=== PATIENT | female | born 1950 | race Caucasian/White ===

== ENCOUNTER → 2019-10-09 08:36 | Outpatient (BNVA) | payer MEDICARE, MEDICAID, SELFPAY | PROVIDERS: Family Provider Family Medicine; PCP Family Medicine; Visit Provider Family Medicine | DX: E11.65 Type 2 diabetes mellitus with hyperglycemia (principal); Z79.4 Long term (current) use of insulin; I10 Essential (primary) hypertension; F32.9 Major depressive disorder, single episode, unspecified | CPT/HCPCS: 80053; 80061; 82044; 83036; 85025 ==

== ENCOUNTER → 2019-11-14 13:37 | Outpatient (BNVA) | payer MEDICARE, MEDICAID, SELFPAY | PROVIDERS: Family Provider Family Medicine; PCP Family Medicine; Visit Provider Family Medicine | DX: R39.9 Unspecified symptoms and signs involving the genitourinary system (principal); E11.9 Type 2 diabetes mellitus without complications; N39.0 Urinary tract infection, site not specified | CPT/HCPCS: 36416; 80053; 81001; 82962; 87077; 87086; 87186 ==

== ENCOUNTER → 2019-12-10 14:49 | Outpatient (BNVA) | payer MEDICARE, MEDICAID, SELFPAY | PROVIDERS: Family Provider Family Medicine; PCP Family Medicine; Visit Provider Family Medicine | DX: E78.5 Hyperlipidemia, unspecified (principal); E11.65 Type 2 diabetes mellitus with hyperglycemia; G47.00 Insomnia, unspecified | CPT/HCPCS: 80053 ==

== ENCOUNTER → 2020-01-20 08:27 | Outpatient (BNVA) | payer MEDICARE, MEDICAID, SELFPAY | PROVIDERS: Family Provider Family Medicine; PCP Family Medicine; Referring Provider Family Medicine; Visit Provider Anesthesiology Pain Medicine | DX: M54.12 Radiculopathy, cervical region (principal); M47.812 Spondylosis without myelopathy or radiculopathy, cervical region; M43.12 Spondylolisthesis, cervical region; M25.511 Pain in right shoulder; M25.512 Pain in left shoulder; Z79.891 Long term (current) use of opiate analgesic; M25.78 Osteophyte, vertebrae; M47.892 Other spondylosis, cervical region | CPT/HCPCS: 72141; 99204; 99205 ==

== ENCOUNTER 2020-01-20 12:37 | Outpatient (CLI) | payer MEDICARE, MEDICAID, SELFPAY ==
--- NOTE | 2020-01-20 13:00 | MR_ITS ---
WS: [id number] MRI CERVICAL SPINE NONCONTRAST TECHNIQUE: Sagittal T1, T2 and STIR imaging. Axial T2, gradient, and fiesta imaging. CLINICAL INFORMATION: M54.12 Radiculopathy, cervical region COMPARISON: MRI September 30, 2015 FINDINGS: Straightening of the normal cervical lordosis. Cord signal is normal. No high-grade central canal linda nosis. Mild disc bulging C4-C5 and C5-C6. A few secretions within the sphenoid sinus. C2-C3: Normal. C4-C5: Mild disc osteophyte complex with endplate ridging. Mild left and no significant right foramin al narrowing. Mild facet arthropathy. C5-6: Disc osteophyte complex with endplate ridging. Mild left and no significant right foraminal giuliano rowing. Mild facet arthropathy. C6-7 Mild osteophytic ridging. Mild left and no significant right foraminal narrowing. Spinal canal i s patent. C7-T1: Mild left and no significant right foraminal narrowing. Spinal canal is patent Small perineural cysts C5-C7 unchanged. Overall no significant changes since 2015 MR/MR cervical spin wo con* [id number] IMPRESSION: 1. Straightening of the normal cervical lordosis. Cord signal is normal. 2. No high-grade central canal narrowing. 3. Mild disc osteophytic ridging with mild bony foraminal narrowing more promi nent at left C5-C6 and left C6-C7. 4. Mild facet arthropathy C4-C5 and C5-C6.
== END 2020-01-20 12:38 | disposition home or self-care (01) ==
LOC: RADSHAW 12:42
PROVIDERS: PCP Family Medicine; Visit Provider Anesthesiology Pain Medicine
DX: M54.12 Radiculopathy, cervical region (principal); M25.78 Osteophyte, vertebrae; M47.892 Other spondylosis, cervical region
CPT/HCPCS: 72141

== ENCOUNTER 2020-01-21 08:34 | Outpatient (CLI) | payer MEDICARE, MEDICAID, SELFPAY ==
--- NOTE | 2020-01-21 08:43 | XR_ITS ---
WS: [id number] CERVICAL SPINE FLEXION EXTENSION TECHNIQUE: 3 views of the cervical spine: lateral neutral, flexion and extension views. CLINICAL INFORMATION: pain COMPARISON: None. FINDINGS: Straightening of the normal cervical lordosis. Slight anterolisthesis C4 on C5 in the neutral positio n measuring 1.1 mm. This increases on flexion to 1.7 mm. This decreases on extension to neutral. Posterior elements are normal. No other significant findings. XR/XR cervical spine fl/ex [id number] IMPRESSION: Mild flexion extension instability at C4-5 described above.
== END 2020-01-21 08:35 | disposition home or self-care (01) ==
LOC: RADWPI 08:39
PROVIDERS: Family Provider Family Medicine; PCP Family Medicine; Visit Provider Anesthesiology Pain Medicine
DX: M54.2 Cervicalgia (principal); M53.2X2 Spinal instabilities, cervical region
CPT/HCPCS: 72040

== ENCOUNTER → 2020-02-05 11:29 | Outpatient (BNVA) | payer MEDICARE, MEDICAID, SELFPAY | PROVIDERS: Family Provider Family Medicine; PCP Family Medicine; Referring Provider Anesthesiology Pain Medicine; Visit Provider Specialist | DX: G56.03 Carpal tunnel syndrome, bilateral upper limbs (principal); M79.643 Pain in unspecified hand | CPT/HCPCS: 36415; 73110; 80053; 85025; 85651; 86038; 86140; 86431 ==

== ENCOUNTER 2020-02-05 12:27 | Outpatient (CLI) | payer MEDICARE, MEDICAID, SELFPAY ==
[2020-02-05 12:58] LABS: Basophils % 0.3 %; Eosinophils # 0.5 10^3/uL (0.0-0.8); Eosinophils % 5.8 %; Hematocrit 38.1 % (37.0-47.0); Hemoglobin 11.8 g/dL (11.5-15.3); Lymphocytes # 2.6 10^3/uL (0.8-4.8); Lymphocytes % 29.7 %; Mean Corpuscular Hemoglobin 26.5 pg (28.0-34.0); Mean Corpuscular Volume 85.6 fL (81-99); Mean Platelet Volume 9.8 fL (7.4-10.4); Monocytes # 0.8 10^3/uL (0.2-0.9); Monocytes % 8.9 %; Neutrophils # 4.8 10^3/uL (1.8-7.7); Neutrophils % 55.1 %; Nucleated Red Blood Cells % 0 %; Platelet Count 145 10^3/cmm (130-400); Red Blood Count 4.45 10^6/uL (4.1-5.3); Red Cell Distribution Width 14.7 % (12.1-15.1); White Blood Count 8.8 10^3/uL (4.0-10.0)
[2020-02-05 13:12] LABS: Alanine Aminotransferase 32 U/L (0-33); Albumin Level 4.4 g/dL (3.5-5.2); Alkaline Phosphatase 86 IU/L (35-105); Anion Gap 18.2 (5-19); Aspartate Amino Transferase 36 U/L (0-32); Blood Urea Nitrogen 12 mg/dL (8-23); C Reactive Protein 0.7 mg/L (0.0-4.9); Calcium 9.7 mg/dL (8.5-10.5); Carbon Dioxide 28 mmol/L (22-29); Chloride 99 mmol/L (98-107); Globulin 3.5 g/dL (1.3-4.6); Glucose 172 mg/dL (65-115); Osmolality Calculated 292 mOsm/kg (285-295); Potassium 4.2 mmol/L (3.5-5.1); Sodium 141 mmol/L (136-145); Total Bilirubin 0.3 mg/dL (0.15-1.2); Total Protein 7.9 g/dL (6.6-8.7)
[2020-02-05 13:59] LABS: Erythrocyte Sedimentation Rate 25 mm/hr (0-15)
[2020-02-09 14:30] LABS: Anti-Nuclear Antibody Screen NEGATIVE (NEGATIVE)
== END 2020-02-05 12:28 | disposition home or self-care (01) ==
LOC: LAB 12:30
PROVIDERS: PCP Family Medicine; Visit Provider Specialist
DX: M79.643 Pain in unspecified hand (principal)
CPT/HCPCS: 36415; 80053; 85025; 85651; 86038; 86140; 86431

== ENCOUNTER → 2020-02-23 08:43 | Outpatient (BNVA) | payer MEDICARE, MEDICAID, SELFPAY | PROVIDERS: Family Provider Family Medicine; PCP Family Medicine; Visit Provider Anesthesiology Pain Medicine | DX: M43.12 Spondylolisthesis, cervical region (principal); M54.12 Radiculopathy, cervical region; M47.812 Spondylosis without myelopathy or radiculopathy, cervical region; Z79.891 Long term (current) use of opiate analgesic | CPT/HCPCS: 99213; 99214 ==

== ENCOUNTER → 2020-03-02 12:57 | Outpatient (BNVA) | payer MEDICARE, MEDICAID, SELFPAY | PROVIDERS: Family Provider Family Medicine; PCP Family Medicine; Visit Provider Anesthesiology Pain Medicine | DX: M54.12 Radiculopathy, cervical region (principal); Z79.891 Long term (current) use of opiate analgesic | CPT/HCPCS: 62321; J1100 ==

== ENCOUNTER → 2020-03-10 08:34 | Outpatient (BNVA) | payer MEDICARE, MEDICAID, SELFPAY | PROVIDERS: Family Provider Family Medicine; PCP Family Medicine; Visit Provider Family Medicine | DX: I10 Essential (primary) hypertension (principal); E78.5 Hyperlipidemia, unspecified; E11.65 Type 2 diabetes mellitus with hyperglycemia; Z79.4 Long term (current) use of insulin | CPT/HCPCS: 80053; 80061; 83036; 85025 ==

== ENCOUNTER → 2020-03-16 12:42 | Outpatient (BNVA) | payer MEDICARE, MEDICAID, SELFPAY | PROVIDERS: Family Provider Family Medicine; PCP Family Medicine; Visit Provider Anesthesiology Pain Medicine | DX: M54.12 Radiculopathy, cervical region (principal) | CPT/HCPCS: 62321; J1100 ==

== ENCOUNTER → 2020-03-30 10:12 | Outpatient (BNVA) | payer MEDICARE, MEDICAID, SELFPAY | PROVIDERS: Family Provider Family Medicine; PCP Family Medicine; Visit Provider Anesthesiology Pain Medicine | DX: M54.12 Radiculopathy, cervical region (principal); M47.812 Spondylosis without myelopathy or radiculopathy, cervical region; M43.12 Spondylolisthesis, cervical region; M79.18 Myalgia, other site; M25.511 Pain in right shoulder | CPT/HCPCS: 20553; 99213; 99214; J1030; J3490 ==

== ENCOUNTER → 2020-04-13 15:49 | Outpatient (BNVA) | payer MEDICARE, MEDICAID, SELFPAY | PROVIDERS: Family Provider Family Medicine; PCP Family Medicine; Visit Provider Nurse Practitioner Family | DX: N28.9 Disorder of kidney and ureter, unspecified (principal) | CPT/HCPCS: 80053 ==

== ENCOUNTER 2020-05-07 13:43 | Emergency (ER) | payer MEDICARE, MEDICAID, SELFPAY ==
[2020-05-07] VITALS (7 sets, daily range): BP systolic 115–150; BP diastolic 72–109; PULSE 88–110; RESP 18–23; TEMP 37.7; O2SAT 92–94; BMI 35.4
--- NOTE | 2020-05-07 14:31 | XR_ITS ---
WS: [id number] Portable AP upright chest, 05/07/2020 Clinical Data: dyspnea Comparison: PA and lateral chest, 12/25/2017. Findings: No nodules, masses or effusions are seen. The heart is normal. The pulmonary vascularity is not increased. No pneumonia or pneumothorax is seen. The aortic arch and descending aorta shows mild tortuosity. XR/XR chest 1V portable [id number] Impression: Atherosclerosis.
--- NOTE | 2020-05-07 14:33 | ECG_ITS ---
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 Measurements Intervals [place] Rate: 101 P: 42 NE: 141 QRS: 18 QRSD: 89 T: 55 QT: 329 QTc: 427 Interpretive Statements SINUS TACHYCARDIA MODERATE ST DEPRESSION [0.05+ mV ST DEPRESSION] Compared to ECG 12/25/2017 18:31:52 ST (T wave) deviation now present Sinus rhythm no longer present Electronically Signed On 05-07-2020 20:39:04 CDT by Lilia Mejia M.D. [id number]
--- NOTE | 2020-05-07 14:33 | CTR_ITS ---
PROCEDURE INFORMATION: Exam: CT Head Without Contrast Exam date and time: 05/07/2020 2:54 PM Age: 69 years old Clinical indication: Pain; Headache not specified; Additional info: Headache, AMS, covid R/O TECHNIQUE: Imaging protocol: Computed tomography of the head without contrast. Radiation optimization: All CT scans at this facility use at least one of these dose optimization techniques: automated exposure control; mA and/or kV adjustment per patient size (includes targeted exams where dose is matched to clinical indication); or iterative reconstruction. COMPARISON: CT head wo con* [id number] 12/25/2017 1:26 PM RADIATION DOSE METRICS: Total DLP (mGy-cm): 797.52 FINDINGS: Brain: There are mild periventricular and subcortical lucencies consistent with chronic microvascular ischemic changes. The barnes-white differentiation is maintained. No hemorrhage. No edema. Cerebral ventricles: No ventriculomegaly. Bones/joints: Unremarkable. No acute fracture. Paranasal sinuses: Visualized sinuses are unremarkable. No fluid levels. Mastoid air cells: Visualized mastoid air cells are well aerated. Orbits: Bilateral cataract surgery. Soft tissues: Unremarkable. CT/CT head wo con* [id number] IMPRESSION: No acute intracranial abnormality. Chronic microvascular ischemic changes. Radiation Dose CTDIVOL = (mGy): DLP = 797.52 (mGy-cm)
--- NOTE | 2020-05-07 14:38 | W.ED.FEMALGU ---
HPI - Female Genitourinary General: Chief complaint: Upper Respiratory Infection Stated complaint: EAR PAIN BOTH EARS Time Seen by Provider: 05/07/20 14:16 History of Present Illness: HPI Narrative: THis patient is a 69 year old female presenting with 7 days of malaise, fever, cough, shortness of breath, diarrhea and ear pain. Her main complaint is the ear pain and a severe headache. She admits to some mild dysuria when specifically asked. She is not aware of any COVID exposure. She has had ear infections in the past, as well as UTIs. She has diabetes, high cholesterol and is obese with a BMI of 35. She is very sleepy and her family member says that she fell asleep repeatedly in the car on the way to the ED which is not her norm. MD elicited complaint: dysuria Onset (ago): week(s) (1) Associated symptoms: Reports headache(s) and nausea; Deny abdominal pain Review of Systems General: Reports: 10 or more systems reviewed and unremarkable except in HPI and below Const: Reports: fever(s), chills, body aches, change in appetite, fatigue and malaise Eyes: Denies: change in vision ENMT: Reports: throat pain and ear or mastoid pain Card: Denies: chest pain or swelling of feet/ankles Resp: Reports: dyspnea and non-productive cough; Denies: productive cough GI: Reports: nausea and diarrhea; Denies: abdominal pain or vomiting : Reports: dysuria; Denies: flank pain or difficulty voiding Musc: Denies: neck pain or back pain Skin/Breast: Denies: rash Neuro: Reports: headache(s) and other (lethargic); Denies: numbness in extremities or weakness in extremities Yohannes/Lymph: Denies: easy bruising or easy bleeding PFS ED PFSH: Medical History Anxiety CHF (congestive heart failure) COPD (chronic obstructive pulmonary disease) Dyslipidemia Essential hypertension Fibromyalgia GERD (gastroesophageal reflux disease) 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, 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 Pain management contract signed Reactive depression Surgical History H/O cataract extraction H/O knee surgery H/O tubal ligation History of cholecystectomy Family History Other Diabetes Stroke Social History Smoking and tobacco status: never smoked Alcohol intake: never Physical Exam Const: COMMON NORMALS: patient oriented x3, no limitations and alert GENERAL APPEARANCE: cooperative, lethargic and ill appearing ORIENTATION/CONSCIOUSNESS: Yes lethargic HENMT: HEAD & SCALP: normal to inspection FACE & SINUS: normal facial exam Eye: GENERAL EYE: appearance normal, both eyes and all related structures Neck/C-Spine: COMMON NORMALS: supple, no meningeal signs and no JVD Chest: COMMONS NORMALS: normal inspection of the chest Resp: COMMON NORMALS: No use of accessory muscles and clear to auscultation bilaterally EFFORT & INSPECTION: Yes tachypneic and Yes labored AUSCULTATION: clear to auscultation bilaterally and diminished lung sounds Cardio: COMMON NORMALS: no JVD, regular rate, regular rhythm and No murmurs present (Cardio) RATE: regular rate RHYTHM: regular rhythm GI: COMMON NORMALS: Normal to inspection, nondistended, normoactive bowel sounds present, Soft to palpation and non-tender INSPECTION: Yes normal to inspection AUSCULTATION: Yes normoactive bowel sounds PALPATION: Yes Soft to palpation and Yes Tenderness to palpation present (GI) (mild) Back/Pelvis: COMMON NORMALS: thoracic and lumbar spine normal to inspection Extremity: COMMON NORMALS: normal to inspection Neuro: COMMON NORMALS: patient oriented x3, moves all extremities, no focal motor deficits and no sensory deficits noted SENSORIUM/ORIENTATION: Yes alert and Yes lethargic MENINGEAL SIGNS: Yes no meningeal signs Psych: COMMON NORMALS: mental status grossly normal, cooperative and normal affect Skin: COMMON NORMALS: no rashes or lesions noted and turgor normal GENERAL SKIN EXAM: no rashes or lesions noted and turgor normal Course ED course: This patient is experiencing mental status changes. She is positive for COVID-19. She also does have some evidence of urinary tract infection. Her oxygen saturations were not terrible however due to her change in mental status we felt it would be safest to admit her to the hospital for treatment. Vital Signs: Vital signs: Vital Signs Temperature 99.8 F H 05/07/20 13:56 Pulse Rate 88 05/07/20 20:54 Respiratory Rate 23 H 05/07/20 19:54 Blood Pressure 132/82 05/07/20 20:54 Pulse Oximetry 92 05/07/20 20:54 MDM - Female Lab Data: Labs: Lab Results 05/07/20 05/07/20 05/07/20 Range/Units 15:08 15:08 15:08 WBC 7.7 (4.0-10.0) 10^3/ uL RBC 5.22 (4.1-5.3) 10^6/u L Hgb 13.6 (11.5-15.3) g/dL Hct 42.8 (37.0-47.0) % MCV 82.0 (81-99) fL MCH 26.1 L (28.0-34.0) pg MCHC 31.8 (30.0-36.0) g/dL RDW 14.8 (12.1-15.1) % Plt Count 130 (130-400) 10^3/c mm MPV 9.8 (7.4-10.4) fL Neut % (Auto) 62.8 % Lymph % (Auto) 16.4 % [place] % (Auto) 15.4 % Eos % (Auto) 5.0 % Baso % (Auto) 0.1 % Neut # (Auto) 4.86 (1.8-7.7) 10^3/u L Lymph # (Auto) 1.3 (0.8-4.8) 10^3/u L [place] # (Auto) 1.2 H (0.2-0.9) 10^3/u L Eos # (Auto) 0.4 (0.0-0.8) 10^3/u L Baso # (Auto) 0.0 (0.0-0.1) 10^3/u L Nucleated RBC % (a uto) 0 % Nucleated RBCs # 0.0 /100WBC PT 13.40 (12.1-14.9) SECO NDS INR 0.99 (0.8-1.2) Fibrinogen 343 (174-498) mg/dL D-Dimer 0.44 (0-0.59) ug/mIFE U Sodium 135 L (136-145) mmol/L Potassium 3.6 (3.5-5.1) mmol/L Chloride 95 L (98-107) mmol/L Carbon Dioxide 22 (22-29) mmol/L Anion Gap 21.6 H (5-19) BUN 12 (8-23) mg/dL Creatinine 0.6 (0.5-0.9) mg/dL GFR Calculation Not Reportable Glucose 154 H (65-115) mg/dL Calculated Osmolal ity 283 L (285-295) mOsm/k g Lactic Acid (0.5-2.2) mmol/L Calcium 9.4 (8.5-10.5) mg/dL Magnesium 1.7 (1.7-2.3) mg/dL Ferritin 192 H (15-150) ng/mL Total Bilirubin 0.4 (0.15-1.2) mg/dL AST 54 H (0-32) U/L ALT 41 H (0-33) U/L Alkaline Phosphata se 92 (35-105) IU/L Troponin T Baselin e (0-10) ng/L Troponin T 120 Min saxman (0-10) ng/L Delta Troponin T (0-10) ABS# C-Reactive Protein 4.1 (0.0-4.9) mg/L NT-Pro-B Natriuret Pep 7 (0-125) pg/mL Total Protein 7.7 (6.6-8.7) g/dL Albumin 4.6 (3.5-5.2) g/dL Globulin 3.1 (1.3-4.6) g/dL Procalcitonin 0.08 (0-0.5) ng/mL Urine Color (Yellow) Urine Appearance (CLEAR) Urine pH (5-7) Ur Specific Gravit y (1.005-1.030) Urine Protein (Negative) Urine Glucose (UA) (Normal) Urine Ketones (Negative) Urine Blood (Negative) Urine Nitrate (Negative) Urine Bilirubin (Negative) Urine Urobilinogen (Negative) mg/dL Ur Leukocyte Belinda ase (Negative) Urine RBC (0-2) /hpf Urine WBC (0-5) /hpf Ur Squamous Epith Cells (0-5) /hpf Ur Transition Epit h Cell /hpf Amorphous Sediment Urine Bacteria (NONE) /hpf SARS-CoV-2 Ag (Rap id) (Negative) 05/07/20 05/07/20 05/07/20 Range/Units 15:08 15:08 15:10 WBC (4.0-10.0) 10^3/ uL RBC (4.1-5.3) 10^6/u L Hgb (11.5-15.3) g/dL Hct (37.0-47.0) % MCV (81-99) fL MCH (28.0-34.0) pg MCHC (30.0-36.0) g/dL RDW (12.1-15.1) % Plt Count (130-400) 10^3/c mm MPV (7.4-10.4) fL Neut % (Auto) % Lymph % (Auto) % [place] % (Auto) % Eos % (Auto) % Baso % (Auto) % Neut # (Auto) (1.8-7.7) 10^3/u L Lymph # (Auto) (0.8-4.8) 10^3/u L [place] # (Auto) (0.2-0.9) 10^3/u L Eos # (Auto) (0.0-0.8) 10^3/u L Baso # (Auto) (0.0-0.1) 10^3/u L Nucleated RBC % (a uto) % Nucleated RBCs # /100WBC PT (12.1-14.9) SECO NDS INR (0.8-1.2) Fibrinogen (174-498) mg/dL D-Dimer (0-0.59) ug/mIFE U Sodium (136-145) mmol/L Potassium (3.5-5.1) mmol/L Chloride (98-107) mmol/L Carbon Dioxide (22-29) mmol/L Anion Gap (5-19) BUN (8-23) mg/dL Creatinine (0.5-0.9) mg/dL GFR Calculation Glucose (65-115) mg/dL Calculated Osmolal ity (285-295) mOsm/k g Lactic Acid 1.9 (0.5-2.2) mmol/L Calcium (8.5-10.5) mg/dL Magnesium (1.7-2.3) mg/dL Ferritin (15-150) ng/mL Total Bilirubin (0.15-1.2) mg/dL AST (0-32) U/L ALT (0-33) U/L Alkaline Phosphata se (35-105) IU/L Troponin T Baselin e 8 (0-10) ng/L Troponin T 120 Min saxman (0-10) ng/L Delta Troponin T (0-10) ABS# C-Reactive Protein (0.0-4.9) mg/L NT-Pro-B Natriuret Pep (0-125) pg/mL Total Protein (6.6-8.7) g/dL Albumin (3.5-5.2) g/dL Globulin (1.3-4.6) g/dL Procalcitonin (0-0.5) ng/mL Urine Color (Yellow) Urine Appearance (CLEAR) Urine pH (5-7) Ur Specific Gravit y (1.005-1.030) Urine Protein (Negative) Urine Glucose (UA) (Normal) Urine Ketones (Negative) Urine Blood (Negative) Urine Nitrate (Negative) Urine Bilirubin (Negative) Urine Urobilinogen (Negative) mg/dL Ur Leukocyte Belinda ase (Negative) Urine RBC (0-2) /hpf Urine WBC (0-5) /hpf Ur Squamous Epith Cells (0-5) /hpf Ur Transition Epit h Cell /hpf Amorphous Sediment Urine Bacteria (NONE) /hpf SARS-CoV-2 Ag (Rap id) Positive H (Negative) 05/07/20 05/07/20 Range/Units 17:00 17:10 WBC (4.0-10.0) 10^3/ uL RBC (4.1-5.3) 10^6/u L Hgb (11.5-15.3) g/dL Hct (37.0-47.0) % MCV (81-99) fL MCH (28.0-34.0) pg MCHC (30.0-36.0) g/dL RDW (12.1-15.1) % Plt Count (130-400) 10^3/c mm MPV (7.4-10.4) fL Neut % (Auto) % Lymph % (Auto) % [place] % (Auto) % Eos % (Auto) % Baso % (Auto) % Neut # (Auto) (1.8-7.7) 10^3/u L Lymph # (Auto) (0.8-4.8) 10^3/u L [place] # (Auto) (0.2-0.9) 10^3/u L Eos # (Auto) (0.0-0.8) 10^3/u L Baso # (Auto) (0.0-0.1) 10^3/u L Nucleated RBC % (a uto) % Nucleated RBCs # /100WBC PT (12.1-14.9) SECO NDS INR (0.8-1.2) Fibrinogen (174-498) mg/dL D-Dimer (0-0.59) ug/mIFE U Sodium (136-145) mmol/L Potassium (3.5-5.1) mmol/L Chloride (98-107) mmol/L Carbon Dioxide (22-29) mmol/L Anion Gap (5-19) BUN (8-23) mg/dL Creatinine (0.5-0.9) mg/dL GFR Calculation Glucose (65-115) mg/dL Calculated Osmolal ity (285-295) mOsm/k g Lactic Acid (0.5-2.2) mmol/L Calcium (8.5-10.5) mg/dL Magnesium (1.7-2.3) mg/dL Ferritin (15-150) ng/mL Total Bilirubin (0.15-1.2) mg/dL AST (0-32) U/L ALT (0-33) U/L Alkaline Phosphata se (35-105) IU/L Troponin T Baselin e (0-10) ng/L Troponin T 120 Min saxman 9.32 (0-10) ng/L Delta Troponin T 1.32 (0-10) ABS# C-Reactive Protein (0.0-4.9) mg/L NT-Pro-B Natriuret Pep (0-125) pg/mL Total Protein (6.6-8.7) g/dL Albumin (3.5-5.2) g/dL Globulin (1.3-4.6) g/dL Procalcitonin (0-0.5) ng/mL Urine Color Yellow (Yellow) Urine Appearance Hazy A (CLEAR) Urine pH 5 (5-7) Ur Specific Gravit y 1.020 (1.005-1.030) Urine Protein Trace (Negative) Urine Glucose (UA) Norm (Normal) Urine Ketones 1+ H (Negative) Urine Blood Neg (Negative) Urine Nitrate Negative (Negative) Urine Bilirubin Neg (Negative) Urine Urobilinogen 1 H (Negative) mg/dL Ur Leukocyte Belinda ase 2+ H (Negative) Urine RBC 0-4 H (0-2) /hpf Urine WBC 25-40 H (0-5) /hpf Ur Squamous Epith Cells 25-40 H (0-5) /hpf Ur Transition Epit h Cell 0-4 /hpf Amorphous Sediment Not Reportable Urine Bacteria 2+ H (NONE) /hpf SARS-CoV-2 Ag (Rap id) (Negative) Discharge Plan Discharge Patient Disposition: Xfer Short-Term Hosp Clinical Impression: Encephalopathy, Urinary tract infection, COVID-19 Condition: Stable Referrals: Irene Verma DO [Primary Care Provider] - Discharge Date/Time: 05/07/20 22:25 Coding Level of Care Code ED Nurse Advisor for Chg Fwd Exam Comprehensive
[2020-05-07] MEDS: sodium chloride 0.9% 1,000 ML 999 ML IV (15:12)
[2020-05-07 15:19] LABS: Basophils % 0.1 %; Eosinophils # 0.4 10^3/uL (0.0-0.8); Hematocrit 42.8 % (37.0-47.0); Hemoglobin 13.6 g/dL (11.5-15.3); Lymphocytes # 1.3 10^3/uL (0.8-4.8); Lymphocytes % 16.4 %; Mean Corpuscular HGB Conc 31.8 g/dL (30.0-36.0); Mean Corpuscular Hemoglobin 26.1 pg (28.0-34.0); Mean Platelet Volume 9.8 fL (7.4-10.4); Monocytes # 1.2 10^3/uL (0.2-0.9); Monocytes % 15.4 %; Neutrophils # 4.86 10^3/uL (1.8-7.7); Neutrophils % 62.8 %; Nucleated Red Blood Cells % 0 %; Platelet Count 130 10^3/cmm (130-400); Red Blood Count 5.22 10^6/uL (4.1-5.3); Red Cell Distribution Width 14.8 % (12.1-15.1); White Blood Count 7.7 10^3/uL (4.0-10.0)
[2020-05-07 15:33] LABS: SARS Covid-2 Antigen Positive (Negative)
[2020-05-07 15:35] LABS: INR 0.99 (0.8-1.2)
[2020-05-07 15:38] LABS: D Dimer 0.44 ug/mIFEU (0-0.59); Lactic Sepsis W/Reflex 1.9 mmol/L (0.5-2.2)
[2020-05-07 15:39] LABS: Troponin(5th) Baseline 8 ng/L (0-10)
[2020-05-07 15:40] LABS: Fibrinogen 343 mg/dL (174-498)
[2020-05-07 15:49] LABS: NT Pro B Type Natriuretic Pept 7 pg/mL (0-125); Procalcitonin 0.08 ng/mL (0-0.5)
[2020-05-07 16:03] LABS: Alanine Aminotransferase 41 U/L (0-33); Albumin Level 4.6 g/dL (3.5-5.2); Alkaline Phosphatase 92 IU/L (35-105); Anion Gap 21.6 (5-19); Aspartate Amino Transferase 54 U/L (0-32); Blood Urea Nitrogen 12 mg/dL (8-23); C Reactive Protein 4.1 mg/L (0.0-4.9); Calcium 9.4 mg/dL (8.5-10.5); Carbon Dioxide 22 mmol/L (22-29); Chloride 95 mmol/L (98-107); Creatinine Clr Calc Pharmacy 68.9618; Ferritin 192 ng/mL (15-150); Globulin 3.1 g/dL (1.3-4.6); Glucose 154 mg/dL (65-115); Magnesium 1.7 mg/dL (1.7-2.3); Osmolality Calculated 283 mOsm/kg (285-295); Potassium 3.6 mmol/L (3.5-5.1); Sodium 135 mmol/L (136-145); Total Bilirubin 0.4 mg/dL (0.15-1.2); Total Protein 7.7 g/dL (6.6-8.7)
[2020-05-07] MEDS: acetaminophen 500 mg Tablet 1000 MG PO (16:28)
--- NOTE | 2020-05-07 16:33 | ECG_ITS ---
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 Measurements Intervals [place] Rate: 100 P: 65 RI: 134 QRS: 25 QRSD: 90 T: 64 QT: 349 QTc: 450 Interpretive Statements SINUS TACHYCARDIA POSSIBLE LEFT ATRIAL ENLARGEMENT [-0.1mV P WAVE IN V1/V2] MODERATE ST DEPRESSION [0.05+ mV ST DEPRESSION] Compared to ECG 05/07/2020 13:58:48 No significant changes Electronically Signed On 05-07-2020 20:40:35 CDT by Lilia Mejia M.D. [id number]
[2020-05-07 17:33] LABS: Troponin 5 2HR 9.32 ng/L (0-10); Troponin 5 2HR Delta 1.32 ABS# (0-10)
[2020-05-07 17:56] LABS: Urine Appearance Hazy (CLEAR); Urine Color Yellow (Yellow); pH Urine 5 (5-7)
[2020-05-07 17:57] LABS: Add Urine Microscopic? YES; Bilirubin Urine Neg (Negative); Blood Urine Neg (Negative); Glucose Urine UA Norm (Normal); Ketones Urine 1+ (Negative); Leukocyte Esterase Urine 2+ (Negative); Nitrate Urine Negative (Negative); Protein Urine Trace (Negative); Urobilinogen Urine 1 mg/dL (Negative)
[2020-05-07 17:58] LABS: RBC Urine 0-4 /hpf (0-2); Squamous Epithelial Cell Urine 25-40 /hpf (0-5); WBC Urine 25-40 /hpf (0-5)
[2020-05-07 17:59] LABS: Add Urine Culture? No; Bacteria Urine 2+ /hpf; Transitional Epi Cells Urine 0-4 /hpf
[2020-05-07] MEDS: cefTRIAXone 1,000 MG in sodium chloride 0.9% (plus) 50 ML 100 MG IV (19:14)
--- NOTE | 2020-05-07 20:32 | PC.NURSE ---
Report given to Ingrid Sainz RN at [facility] at 2029. Patient consent form signed at 2021.
--- NOTE | 2020-05-07 20:33 | ECG_ITS ---
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 Measurements Intervals [place] Rate: 85 P: 66 [place]: 147 QRS: 34 QRSD: 91 T: 66 QT: 379 QTc: 452 Interpretive Statements SINUS RHYTHM MINIMAL ST DEPRESSION [0.025+ mV ST DEPRESSION] Compared to ECG 05/07/2020 16:05:07 Sinus tachycardia no longer present ST (T wave) deviation still present Electronically Signed On 05-10-2020 17:37:34 CDT by Deejay Chambers M.D. [id number]
== END 2020-05-07 22:25 | disposition short-term general hospital (02) ==
PROVIDERS: Emergency Medicine; Emergency Provider Emergency Medicine; PCP Family Medicine
DX: G93.40 Encephalopathy, unspecified (principal); N39.0 Urinary tract infection, site not specified; U07.1 COVID-19; I11.0 Hypertensive heart disease with heart failure; I50.9 Heart failure, unspecified; J44.9 Chronic obstructive pulmonary disease, unspecified; E78.5 Hyperlipidemia, unspecified; E11.9 Type 2 diabetes mellitus without complications
CPT/HCPCS: 12345; 70450; 71045; 80053; 81001; 82728; 83605; 83735; 83880; 84145; 84484; 85025; 85378; 85384; 85610; 86140; 87426; 93005; 96365; 99283; 99284; J0696; J7030

== ENCOUNTER 2020-05-16 12:33 | Emergency (ER) | payer MEDICARE, MEDICAID, SELFPAY ==
[2020-05-16] VITALS (10 sets, daily range): BP systolic 95–176; BP diastolic 61–88; PULSE 63–92; RESP 14–32; TEMP 37; O2SAT 75–98; BMI 38.9
--- NOTE | 2020-05-16 12:51 | XRR_ITS ---
PROCEDURE INFORMATION: Exam: XR Chest, 1 View Exam date and time: 05/16/2020 12:54 PM Age: 69 years old Clinical indication: Shortness of breath; Additional info: Covid, hypoxia TECHNIQUE: Imaging protocol: XR of the chest Views: 1 view. COMPARISON: CR XR chest 1V portable [id number] 05/07/2020 2:38 PM FINDINGS: Lungs: Low lung volumes are seen. Parenchymal densities are seen in the right lower lobe suspicious for pneumonia. Interstitial congestion is present in the left lower lobe. Pleural space: Unremarkable. No pleural effusion. No pneumothorax. Heart/Mediastinum: Unremarkable. No cardiomegaly. Bones/joints: Unremarkable. Other findings: These findings are new since prior examination XR/XR chest 1V portable [id number] IMPRESSION: 1. Parenchymal density right lower lobe possible pneumonia 2. Left lower lobe interstitial congestion. 3. Low lung volumes
--- NOTE | 2020-05-16 12:57 | ED_ITS ---
HPI - Altered Mental Status General: Chief Complaint: Shortness of Breath/Dyspnea Stated Complaint: covid +/ sob/ low o2 stats Time Seen by Provider: 05/16/20 12:45 History of Present Illness: HPI narrative: This patient is a 69-year-old female who presents today with altered mental status and hypoxia. She had a positive COVID test on May 07. I saw her in the ER on that day with vague symptoms that were related to lethargy, ear pain, upper respiratory type symptoms. She also had a UTI at that time. Her daughter at that time told me that she has a history of UTIs and often gets decreased mental status with them. We admitted her on that date but due to bed availability she was transferred to [facility]. She was released after 1 day according to her grandson who brought her in [facility]. He said that since that time she is just been very lethargic and sleepy. Today she had a significant decrease in her mental status and they noted that her pulse ox was in the 60s. They brought her in by private vehicle. On arrival she was lethargic and was not even sure what her name was. Her initial sat for us was 75%. The positive cover test was on May 07 and at that time she reported that she had not been feeling well for nearly a week but had not had any really specific COVID symptoms so it is hard to say when the infection actually started. If it had started a week before she would be on about day 14 today. The patient's only complaint to us on initial assessment was right leg pain. I do not note any swelling there. I spoke with the patient's daughter who is an RN. She said that she was sent home on Decadron from the hospital but was not on any antibiotics because they did not think she had a UTI based on the urine test there. I checked her cultures here and the urine sent from here did grow E. coli. Alina start her on some antibiotics now. complaint: altered mental status, decreased responsiveness and weakness Timing confirmed by: family member Severity: severe Consistency of symptoms: Getting Worse Review of Systems General: Reports: ROS unobtainable due to mental status PFS ED PFSH: Medical History Anxiety CHF (congestive heart failure) COPD (chronic obstructive pulmonary disease) Dyslipidemia Essential hypertension Fibromyalgia GERD (gastroesophageal reflux disease) 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, uncontrolled half-way (current) use of opiate analgesic Pain management contract signed Reactive depression Surgical History H/O cataract extraction H/O knee surgery H/O tubal ligation History of cholecystectomy Family History Other Diabetes Stroke Social History Smoking and tobacco status: never smoked Alcohol intake: never Physical Exam HENMT: HEAD & SCALP: normal to inspection FACE & SINUS: normal facial exam Eye: GENERAL EYE: appearance normal, both eyes and all related structures Neck/C-Spine: COMMON NORMALS: supple, no meningeal signs and no JVD Chest: COMMONS NORMALS: normal inspection of the chest Resp: COMMON NORMALS: normal respiratory effort EFFORT & INSPECTION: Yes decreased respiratory effort AUSCULTATION: rhonchi left lower Cardio: COMMON NORMALS: no JVD, regular rate, regular rhythm and No murmurs present (Cardio) RATE: regular rate RHYTHM: regular rhythm GI: COMMON NORMALS: Normal to inspection, nondistended, normoactive bowel sounds present, Soft to palpation and non-tender INSPECTION: Yes normal to inspection AUSCULTATION: Yes normoactive bowel sounds PALPATION: Yes Soft to palpation Back/Pelvis: COMMON NORMALS: thoracic and lumbar spine normal to inspection Extremity: COMMON NORMALS: normal to inspection Neuro: ERMIAS COMA SCALE: document [facility] findings [place] coma scale eye opening: To sound Ermias coma scale verbal response: Confused Ermias coma scale motor response: Obey commands Ermias coma scale total score: 13 COMMON NORMALS: moves all extremities, no focal motor deficits and no sensory deficits noted MENINGEAL SIGNS: Yes no meningeal signs GAIT: Yes Other gait observations present (Was able to stand to transfer from the wheelchair to the bed but with assistance from 2 people) SENSORY EXAM: Yes extremities Psych: COMMON NORMALS: mental status grossly normal, cooperative and normal affect Skin: COMMON NORMALS: no rashes or lesions noted and turgor normal GENERAL SKIN EXAM: no rashes or lesions noted and turgor normal Procedures Intubation Time out performed: Yes sedative: Etomidate paralytic: Succinylcholine Laryngoscope: fiber optic video scope ET Tube Size: 8 ET Tube Uncuffed: No Tube Secured Depth (cm): 23 Tube Secured Location: lips Tube Placement Confirmation: visualized tube passing through cords, equal breath sounds bilaterally, no breath sounds over epigastrium and confirmation by capnometry Patient Tolerated Procedure: well Intubation Complications: none Course ED course: Ms. Aden had progressively increasing oxygen requirements and eventually required intubation. She will be transferred to [facility] for further treatment of her Covid pneumonia. I had multiple discussions with her daughter about her condition and plan of care. Vital Signs: Vital signs: Vital Signs Temperature 98.6 F 05/16/20 12:58 Pulse Rate 63 05/16/20 16:29 Respiratory Rate 17 05/16/20 16:58 Blood Pressure 102/62 05/16/20 16:29 Pulse Oximetry 97 05/16/20 16:29 MDM - Altered Mental Status Lab Data: Labs: Lab Results 05/16/20 05/16/20 05/16/20 Range/Units 12:30 12:45 12:45 WBC 12.7 H (4.0-10.0) 10^3/ uL RBC 4.85 (4.1-5.3) 10^6/u L Hgb 12.6 (11.5-15.3) g/dL Hct 41.0 (37.0-47.0) % MCV 84.5 (81-99) fL MCH 26.0 L (28.0-34.0) pg MCHC 30.7 (30.0-36.0) g/dL RDW 14.8 (12.1-15.1) % Plt Count 173 (130-400) 10^3/c mm MPV 10.3 (7.4-10.4) fL Neut % (Auto) 74.6 % Lymph % (Auto) 15.0 % [place] % (Auto) 7.4 % Eos % (Auto) 2.0 % Baso % (Auto) 0.2 % Neut # (Auto) 9.45 H (1.8-7.7) 10^3/u L Lymph # (Auto) 1.9 (0.8-4.8) 10^3/u L [place] # (Auto) 0.9 (0.2-0.9) 10^3/u L Eos # (Auto) 0.3 (0.0-0.8) 10^3/u L Baso # (Auto) 0.0 (0.0-0.1) 10^3/u L Nucleated RBC % (a uto) 0 % Nucleated RBCs # 0.0 /100WBC PT 14.20 (12.1-14.9) SECO NDS INR 1.06 (0.8-1.2) Fibrinogen 604 H (174-498) mg/dL D-Dimer 1.20 H (0-0.59) ug/mIFE U Specimen Type Arterial Sample Site Radial, left ABG pH 7.45 (7.35-7.45) ABG pCO2 36.3 (35-45) mmHg ABG pO2 71.4 L (80.0-100.0) mmH g ABG HCO3 24.9 (22-26) mmol/L ABG Base Excess 1.1 (-2.0-2.0) mmol/ L Tigre Test Pos Hematocrit 39.1 (37-47) % O2 Delivery Device Nrb O2 Liters/Min 15.0 % FiO2 % Tidal Volume PEEP cmH20 Ore Fielder ID Cak Sodium (136-145) mmol/L Potassium (3.5-5.1) mmol/L Chloride (98-107) mmol/L Carbon Dioxide (22-29) mmol/L Anion Gap (5-19) BUN (8-23) mg/dL Creatinine (0.5-0.9) mg/dL GFR Calculation Glucose (65-115) mg/dL POC Glucose (70-110) mg/dL Calculated Osmolal ity (285-295) mOsm/k g Lactic Acid (0.5-2.2) mmol/L Lactic Acid (Sepsi s) (0.5-2.2) mmol/L Calcium (8.5-10.5) mg/dL Magnesium (1.7-2.3) mg/dL Ferritin (15-150) ng/mL Total Bilirubin (0.15-1.2) mg/dL AST (0-32) U/L ALT (0-33) U/L Alkaline Phosphata se (35-105) IU/L Lactate Dehydrogen ase (135-214) U/L C-Reactive Protein (0.0-4.9) mg/L NT-Pro-B Natriuret Pep (0-125) pg/mL Total Protein (6.6-8.7) g/dL Albumin (3.5-5.2) g/dL Globulin (1.3-4.6) g/dL Procalcitonin (0-0.5) ng/mL Urine Color (Yellow) Urine Appearance (CLEAR) Urine pH (5-7) Ur Specific Gravit y (1.005-1.030) Urine Protein (Negative) Urine Glucose (UA) (Normal) Urine Ketones (Negative) Urine Blood (Negative) Urine Nitrate (Negative) Urine Bilirubin (Negative) Urine Urobilinogen (Negative) mg/dL Ur Leukocyte Belinda ase (Negative) Urine RBC (0-2) /hpf Urine WBC (0-5) /hpf Ur Squamous Epith Cells (0-5) /hpf Amorphous Sediment Urine Bacteria (NONE) /hpf Urine Mucus /hpf 05/16/20 05/16/20 05/16/20 Range/Units 12:45 12:45 13:29 WBC (4.0-10.0) 10^3/ uL RBC (4.1-5.3) 10^6/u L Hgb (11.5-15.3) g/dL Hct (37.0-47.0) % MCV (81-99) fL MCH (28.0-34.0) pg MCHC (30.0-36.0) g/dL RDW (12.1-15.1) % Plt Count (130-400) 10^3/c mm MPV (7.4-10.4) fL Neut % (Auto) % Lymph % (Auto) % [place] % (Auto) % Eos % (Auto) % Baso % (Auto) % Neut # (Auto) (1.8-7.7) 10^3/u L Lymph # (Auto) (0.8-4.8) 10^3/u L [place] # (Auto) (0.2-0.9) 10^3/u L Eos # (Auto) (0.0-0.8) 10^3/u L Baso # (Auto) (0.0-0.1) 10^3/u L Nucleated RBC % (a uto) % Nucleated RBCs # /100WBC PT (12.1-14.9) SECO NDS INR (0.8-1.2) Fibrinogen (174-498) mg/dL D-Dimer (0-0.59) ug/mIFE U Specimen Type Sample Site ABG pH (7.35-7.45) ABG pCO2 (35-45) mmHg ABG pO2 (80.0-100.0) mmH g ABG HCO3 (22-26) mmol/L ABG Base Excess (-2.0-2.0) mmol/ L Tigre Test Hematocrit (37-47) % O2 Delivery Device O2 Liters/Min % FiO2 % Tidal Volume PEEP cmH20 Ore Fielder ID Sodium 140 (136-145) mmol/L Potassium 3.6 (3.5-5.1) mmol/L Chloride 101 (98-107) mmol/L Carbon Dioxide 24 (22-29) mmol/L Anion Gap 18.6 (5-19) BUN 19 (8-23) mg/dL Creatinine 0.6 (0.5-0.9) mg/dL GFR Calculation Not Reportable Glucose 163 H (65-115) mg/dL POC Glucose 101 (70-110) mg/dL Calculated Osmolal ity 296 H (285-295) mOsm/k g Lactic Acid 3.1 H (0.5-2.2) mmol/L Lactic Acid (Sepsi s) (0.5-2.2) mmol/L Calcium 8.9 (8.5-10.5) mg/dL Magnesium 1.7 (1.7-2.3) mg/dL Ferritin 435 H (15-150) ng/mL Total Bilirubin 0.5 (0.15-1.2) mg/dL AST 50 H (0-32) U/L ALT 36 H (0-33) U/L Alkaline Phosphata se 71 (35-105) IU/L Lactate Dehydrogen ase 398 H (135-214) U/L C-Reactive Protein 83.6 H (0.0-4.9) mg/L NT-Pro-B Natriuret Pep 75 (0-125) pg/mL Total Protein 6.8 (6.6-8.7) g/dL Albumin 3.3 L (3.5-5.2) g/dL Globulin 3.5 (1.3-4.6) g/dL Procalcitonin 0.15 (0-0.5) ng/mL Urine Color (Yellow) Urine Appearance (CLEAR) Urine pH (5-7) Ur Specific Gravit y (1.005-1.030) Urine Protein (Negative) Urine Glucose (UA) (Normal) Urine Ketones (Negative) Urine Blood (Negative) Urine Nitrate (Negative) Urine Bilirubin (Negative) Urine Urobilinogen (Negative) mg/dL Ur Leukocyte Belinda ase (Negative) Urine RBC (0-2) /hpf Urine WBC (0-5) /hpf Ur Squamous Epith Cells (0-5) /hpf Amorphous Sediment Urine Bacteria (NONE) /hpf Urine Mucus /hpf 05/16/20 05/16/20 05/16/20 Range/Units 15:25 15:49 16:15 WBC (4.0-10.0) 10^3/ uL RBC (4.1-5.3) 10^6/u L Hgb (11.5-15.3) g/dL Hct (37.0-47.0) % MCV (81-99) fL MCH (28.0-34.0) pg MCHC (30.0-36.0) g/dL RDW (12.1-15.1) % Plt Count (130-400) 10^3/c mm MPV (7.4-10.4) fL Neut % (Auto) % Lymph % (Auto) % [place] % (Auto) % Eos % (Auto) % Baso % (Auto) % Neut # (Auto) (1.8-7.7) 10^3/u L Lymph # (Auto) (0.8-4.8) 10^3/u L [place] # (Auto) (0.2-0.9) 10^3/u L Eos # (Auto) (0.0-0.8) 10^3/u L Baso # (Auto) (0.0-0.1) 10^3/u L Nucleated RBC % (a uto) % Nucleated RBCs # /100WBC PT (12.1-14.9) SECO NDS INR (0.8-1.2) Fibrinogen (174-498) mg/dL D-Dimer (0-0.59) ug/mIFE U Specimen Type Arterial Sample Site Radial, right ABG pH 7.39 (7.35-7.45) ABG pCO2 45.3 H (35-45) mmHg ABG pO2 233.0 H (80.0-100.0) mmH g ABG HCO3 27.4 H (22-26) mmol/L ABG Base Excess 2.0 (-2.0-2.0) mmol/ L Tigre Test Pos Hematocrit 35.5 L (37-47) % O2 Delivery Device Vent O2 Liters/Min % FiO2 90.0 % Tidal Volume 0.45 PEEP 10.0 cmH20 Ore Fielder ID [place] Sodium (136-145) mmol/L Potassium (3.5-5.1) mmol/L Chloride (98-107) mmol/L Carbon Dioxide (22-29) mmol/L Anion Gap (5-19) BUN (8-23) mg/dL Creatinine (0.5-0.9) mg/dL GFR Calculation Glucose (65-115) mg/dL POC Glucose (70-110) mg/dL Calculated Osmolal ity (285-295) mOsm/k g Lactic Acid (0.5-2.2) mmol/L Lactic Acid (Sepsi s) 2.4 H (0.5-2.2) mmol/L Calcium (8.5-10.5) mg/dL Magnesium (1.7-2.3) mg/dL Ferritin (15-150) ng/mL Total Bilirubin (0.15-1.2) mg/dL AST (0-32) U/L ALT (0-33) U/L Alkaline Phosphata se (35-105) IU/L Lactate Dehydrogen ase (135-214) U/L C-Reactive Protein (0.0-4.9) mg/L NT-Pro-B Natriuret Pep (0-125) pg/mL Total Protein (6.6-8.7) g/dL Albumin (3.5-5.2) g/dL Globulin (1.3-4.6) g/dL Procalcitonin (0-0.5) ng/mL Urine Color Dark yellow (Yellow) Urine Appearance Sl hazy (CLEAR) Urine pH 5 (5-7) Ur Specific Gravit y 1.020 (1.005-1.030) Urine Protein Trace (Negative) Urine Glucose (UA) Norm (Normal) Urine Ketones 1+ H (Negative) Urine Blood Neg (Negative) Urine Nitrate Negative (Negative) Urine Bilirubin Neg (Negative) Urine Urobilinogen 1 H (Negative) mg/dL Ur Leukocyte Belinda ase Negative (Negative) Urine RBC None (0-2) /hpf Urine WBC 0-4 H (0-5) /hpf Ur Squamous Epith Cells 0-4 H (0-5) /hpf Amorphous Sediment Not Reportable Urine Bacteria Trace (NONE) /hpf Urine Mucus Trace /hpf Discharge Plan Discharge Patient Disposition: Xfer Other Referrals: Irene Verma DO [Primary Care Provider] - Discharge Date/Time: 05/16/20 17:14 Coding Level of Care Code ED [employer] for Chg Fwd Exam Comprehensive
[2020-05-16 13:01] LABS: Basophils % 0.2 %; Eosinophils # 0.3 10^3/uL (0.0-0.8); Hemoglobin 12.6 g/dL (11.5-15.3); Lymphocytes # 1.9 10^3/uL (0.8-4.8); Mean Corpuscular HGB Conc 30.7 g/dL (30.0-36.0); Mean Corpuscular Volume 84.5 fL (81-99); Mean Platelet Volume 10.3 fL (7.4-10.4); Monocytes # 0.9 10^3/uL (0.2-0.9); Monocytes % 7.4 %; Neutrophils # 9.45 10^3/uL (1.8-7.7); Neutrophils % 74.6 %; Nucleated Red Blood Cells % 0 %; Platelet Count 173 10^3/cmm (130-400); Red Blood Count 4.85 10^6/uL (4.1-5.3); Red Cell Distribution Width 14.8 % (12.1-15.1); White Blood Count 12.7 10^3/uL (4.0-10.0)
[2020-05-16 13:07] LABS: INR 1.06 (0.8-1.2)
[2020-05-16 13:08] LABS: Fibrinogen 604 mg/dL (174-498)
[2020-05-16 13:13] LABS: Lactic Sepsis W/Reflex 3.1 mmol/L (0.5-2.2)
[2020-05-16 13:23] LABS: NT Pro B Type Natriuretic Pept 75 pg/mL (0-125); Procalcitonin 0.15 ng/mL (0-0.5)
[2020-05-16 13:29] LABS: Reflex Lactate Order REFLEX LACTIC ORDERD
[2020-05-16 13:33] LABS: Glucose Point of Care 101 mg/dL (70-110)
[2020-05-16 13:35] LABS: Alanine Aminotransferase 36 U/L (0-33); Albumin Level 3.3 g/dL (3.5-5.2); Alkaline Phosphatase 71 IU/L (35-105); Anion Gap 18.6 (5-19); Aspartate Amino Transferase 50 U/L (0-32); Blood Urea Nitrogen 19 mg/dL (8-23); C Reactive Protein 83.6 mg/L (0.0-4.9); Calcium 8.9 mg/dL (8.5-10.5); Carbon Dioxide 24 mmol/L (22-29); Chloride 101 mmol/L (98-107); Creatinine Clr Calc Pharmacy 72.6568; Ferritin 435 ng/mL (15-150); Globulin 3.5 g/dL (1.3-4.6); Glucose 163 mg/dL (65-115); Magnesium 1.7 mg/dL (1.7-2.3); Osmolality Calculated 296 mOsm/kg (285-295); Potassium 3.6 mmol/L (3.5-5.1); Sodium 140 mmol/L (136-145); Total Bilirubin 0.5 mg/dL (0.15-1.2); Total Protein 6.8 g/dL (6.6-8.7)
[2020-05-16 13:38] LABS: ABG PCO2 36.3 mmHg (35-45); ABG PH Result 7.45 (7.35-7.45); Arterial Blood Gas Hematocrit 39.1 % (37-47); Base Excess ABG 1.1 mmol/L (-2.0-2.0); Blood Gas Allen Test Pos; Blood Gas Operator Identificat CAK; Blood Gas Sample Site Radial, left; Blood Gas Sample Type Arterial; HCO3 ABG 24.9 mmol/L (22-26); Oxygen Device NRB; PO2 ABG 71.4 mmHg (80.0-100.0)
[2020-05-16] MEDS: cefTRIAXone 1,000 MG in sodium chloride 0.9% (plus) 50 ML 100 MG IV (13:39)
[2020-05-16 13:48] LABS: Lactate Dehydrogenase 398 U/L (135-214)
[2020-05-16] MEDS: enoxaparin 100 mg/mL Syringe SUBCUT (14:41)
[2020-05-16] MEDS: haloperidol inj 5 mg/mL INJ 1 mL 2 MG IVP (14:41)
[2020-05-16] MEDS: dexamethasone 4 mg/mL INJ 6 MG IVP (14:42)
[2020-05-16] MEDS: succinylcholine 20 mg/mL SDV 10mL 125 MG IVP (15:03)
[2020-05-16] MEDS: propofol 1,000 MG/100 ML INJ 6 MG IV (15:06)
--- NOTE | 2020-05-16 15:13 | PC.NURSE ---
25mcg bolus of propofol administered by RN for sedation from IV pump
--- NOTE | 2020-05-16 15:20 | PC.NURSE ---
pt given 25mcg bolus of propofol for sedation from IV pump per verbal order of ED physician
[2020-05-16] MEDS: fentaNYL 50 mcg/mL INJ 2mL 100 MCG IVP (15:24)
--- NOTE | 2020-05-16 15:36 | PC.NURSE ---
*1 nurse assisted with intubation of Pt. Pt received 8.0 ET tube-22 at teeth. Equal breath sounds auscultated bilaterally. 14french OG tube inserted with auscultation and gastric contents to confirm placement.
[2020-05-16 16:02] LABS: ABG PCO2 45.3 mmHg (35-45); ABG PH Result 7.39 (7.35-7.45); Arterial Blood Gas Hematocrit 35.5 % (37-47); Blood Gas Allen Test Pos; Blood Gas Operator Identificat MONRO; Blood Gas Sample Site Radial, right; Blood Gas Sample Type Arterial; HCO3 ABG 27.4 mmol/L (22-26); Oxygen Device VENT
[2020-05-16 16:03] LABS: Blood Gas Tidal Volume 0.45
[2020-05-16 16:13] LABS: Protein Urine Trace (Negative); Urine Appearance SL Hazy (CLEAR); Urine Color Dark Yellow (Yellow); pH Urine 5 (5-7)
[2020-05-16 16:14] LABS: Add Urine Culture? No; Add Urine Microscopic? YES; Bacteria Urine TRACE /hpf; Bilirubin Urine Neg (Negative); Blood Urine Neg (Negative); Glucose Urine UA Norm (Normal); Ketones Urine 1+ (Negative); Leukocyte Esterase Urine Negative (Negative); Mucus Urine TRACE /hpf; Nitrate Urine Negative (Negative); Squamous Epithelial Cell Urine 0-4 /hpf (0-5); Urobilinogen Urine 1 mg/dL (Negative); WBC Urine 0-4 /hpf (0-5)
--- NOTE | 2020-05-16 16:28 | ECG_ITS ---
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 Measurements Intervals [place] Rate: 78 P: 38 WI: 147 QRS: 19 QRSD: 91 T: 74 QT: 360 QTc: 411 Interpretive Statements SINUS RHYTHM NONSPECIFIC ST & T-WAVE ABNORMALITY WARNING: DATA QUALITY MAY AFFECT INTERPRETATION INTERPRETATION BASED ON A DEFAULT AGE OF 40 YEARS Compared to ECG 05/07/2020 19:45:04 T-wave abnormality now present ST (T wave) deviation no longer present Electronically Signed On 05-16-2020 18:11:49 CDT by Danielle Yoder M.D. [id number]
[2020-05-16 16:39] LABS: Lactic Acid level (Lactate) 2.4 mmol/L (0.5-2.2)
--- NOTE | 2020-05-16 17:05 | PC.NURSE ---
PT GIVEN 25MCG OF FENTANYL IV BOLUS FROM IV PUMP.
== END 2020-05-16 17:14 | disposition other institution (70) ==
PROVIDERS: Emergency Provider Emergency Medicine; PCP Family Medicine
DX: R06.02 Shortness of breath (principal); R09.02 Hypoxemia; I11.0 Hypertensive heart disease with heart failure; I50.9 Heart failure, unspecified; J44.9 Chronic obstructive pulmonary disease, unspecified; E78.5 Hyperlipidemia, unspecified; E11.9 Type 2 diabetes mellitus without complications
CPT/HCPCS: 12345; 31500; 36415; 36416; 36600; 51702; 71045; 80053; 81001; 82728; 82803; 82962; 83605; 83615; 83735; 83880; 84145; 85025; 85378; 85384; 85610; 86140; 87040; 93005; 94002; 94799; 96365; 96366; 96367; 96368; 96372; 96375; 99284; 99291; J0330; J0696; J1100; J1630; J1650; J2704; J3010; J3490

== ENCOUNTER → 2020-06-09 08:39 | Outpatient (BNVA) | payer MEDICARE, MEDICAID, SELFPAY | PROVIDERS: PCP Family Medicine; Visit Provider Family Medicine | DX: E11.65 Type 2 diabetes mellitus with hyperglycemia (principal); Z79.4 Long term (current) use of insulin; Z23 Encounter for immunization | CPT/HCPCS: 80053; 82043; 83036 ==

== ENCOUNTER → 2020-09-06 08:27 | Outpatient (BNVA) | payer MEDICARE, MEDICAID, SELFPAY | PROVIDERS: PCP Family Medicine; Visit Provider Family Medicine | DX: E11.9 Type 2 diabetes mellitus without complications (principal); E78.5 Hyperlipidemia, unspecified; I10 Essential (primary) hypertension; Z79.4 Long term (current) use of insulin | CPT/HCPCS: 80053; 80061; 83036 ==

== ENCOUNTER → 2020-12-06 08:29 | Outpatient (BNVA) | payer MEDICARE, MEDICAID, SELFPAY | PROVIDERS: PCP Family Medicine; Visit Provider Family Medicine | DX: E11.9 Type 2 diabetes mellitus without complications (principal); Z79.4 Long term (current) use of insulin | CPT/HCPCS: 80053; 83036 ==

== ENCOUNTER 2020-12-29 15:29 | Emergency (ER) | payer MEDICARE, MEDICAID, SELFPAY ==
[2020-12-29 16:04] VITALS: BP 125/79; PULSE 82; RESP 18; TEMP 36.2; O2SAT 96; BMI 36.0
--- NOTE | 2020-12-29 16:14 | XRR_ITS ---
PROCEDURE INFORMATION: Exam: XR Right Hip Exam date and time: 12/29/2020 4:32 PM Age: 69 years old Clinical indication: Injury or trauma; Fall; Blunt trauma (contusions or hematomas); Right; Injury date: 3 days ago; Injury details: Hit hip on orthodox pew; Additional info: Fall, one view pelvis too please TECHNIQUE: Imaging protocol: XR Right hip. Views: 1 view hip with pelvis when performed. COMPARISON: [place]dom[place] [id number] 12/26/2017 12:56 PM FINDINGS: Bones/joints: Unremarkable. No acute fracture. Soft tissues: Unremarkable. XR/XR hip RT 2-3V wo/w pel* [id number] IMPRESSION: No acute findings.
[2020-12-29 16:16] VITALS: BP 125/79; PULSE 80; RESP 16; O2SAT 94
--- NOTE | 2020-12-29 16:25 | ED_ITS ---
Documented by User: JACOB Bland 12/30/20 07:07 HPI - Extremity Problem General: Chief complaint: Extremity Injury, Lower Stated complaint: R hip pain Time Seen by Provider: 12/29/20 16:19 Source: patient Mode of arrival: ambulatory Limitations: no limitations History of Present Illness: HPI Narrative: Patient is a nice 69-year-old female who presents to ED today with a complaint of right hip pain. Patient tells me 3 days ago while at [employer] she accidentally fell backwards (mechanical- no complaints of chest pain, SOB, dizziness) and struck her right hip on a [employer] pe[employer]. She states she did notice discomfort immediately but laughed it off . She states she has progressively noticed worsening pain over the past 3 days. Pain is worse with ambulation. She has had ambulate with a cane secondary to discomfort. No other injury sustained during the event. MD Complaint: joint pain Onset (ago): day(s) Pain Consistency: constant Location: right and lower extremity Radiation: none Relieving factors: immobilization Exacerbating factors: range of motion, weight bearing and walking Associated symptoms: Reports no associated symptoms; Deny chest pain or fever(s) Review of Systems Const: Denies: fever(s) Eyes: Denies: change in vision Card: Denies: chest pain Resp: Denies: dyspnea GI: Denies: abdominal pain, nausea or vomiting : Denies: flank pain or hematuria Musc: Reports: joint pain (R hip); Denies: neck pain, back pain, extremity pain, extremity swelling, joint swelling, joint redness, joint warmth or joint stiffness Neuro: Reports: difficulty walking (secondary to pain); Denies: numbness in extremities, weakness in extremities or sensory changes PFS ED PFSH: Medical History Anxiety CHF (congestive heart failure) COPD (chronic obstructive pulmonary disease) Dyslipidemia Essential hypertension Fibromyalgia GERD (gastroesophageal reflux disease) History of 2019 novel coronavirus disease (COVID-19) detention (current) use of opiate analgesic Pain management contract signed Reactive depression Type 2 diabetes mellitus, with long-term current use of insulin Surgical History H/O cataract extraction H/O knee surgery H/O tubal ligation History of cholecystectomy Family History Other Diabetes Stroke Social History Smoking and tobacco status: never smoked Alcohol intake: never Physical Exam Const: COMMON NORMALS: no acute distress, patient oriented x3, no limitations and alert GENERAL APPEARANCE: cooperative NUTRITIONAL APPEARANCE: overweight ORIENTATION/CONSCIOUSNESS: Yes awake, Yes oriented to person, Yes oriented to place and Yes oriented to time OTHER: ambulating poorly with a cane HENMT: COMMON NORMALS: atraumatic HEAD & SCALP: atraumatic Resp: COMMON NORMALS: normal respiratory effort and clear to auscultation bilaterally AUSCULTATION: clear to auscultation bilaterally Cardio: COMMON NORMALS: regular rate and regular rhythm RATE: regular rate RHYTHM: regular rhythm Extremity: RIGHT LOWER EXTREMITY: Yes hip joint (TTP posterior/lateral R hip) Right hip: Yes neurovascular exam (normal ) Neuro: COMMON NORMALS: patient oriented x3 SENSORIUM/ORIENTATION: Yes alert, Yes oriented to person, Yes oriented to place and Yes oriented to time Course Vital Signs: Vital signs: Vital Signs Temperature 97.1 F L 12/29/20 16:04 Pulse Rate 80 12/29/20 16:16 Respiratory Rate 16 12/29/20 16:16 Blood Pressure 125/79 12/29/20 16:16 Pulse Oximetry 94 12/29/20 16:16 MDM - Extremity (Nontraumatic) MDM Narrative: Medical decision making narrative: Care transferred to CIELO Girard. I don't see anything obvious on her plain films but given her amount of pain and trouble with ambulation I am concerned for occult fracture. Will obtain CT imaging. Imaging Data^: XR R hip/pelvis: My impression: NAD Discharge Plan Discharge Patient Disposition: Home Clinical Impression: Contusion of right hip Qualifiers: Encounter type: initial encounter Qualified Code(s): S70.01XA - Contusion of right hip, initial encounter Condition: Stable Prescriptions: New Voltaren 1 % gel 4 g topical QID Qty: 100 RF: 0 No Action nitroglycerin 0.4 mg tablet, sublingual 0.4 mg SUBLINGUAL Q5M PRN (Reason: Chest Pain) RF: 0 albuterol sulfate 2.5 mg /3 mL (0.083 %) solution for nebulization 2.5 mg inhalation Q4H PRN (Reason: shortness of breath or wheezing) Qty: 180 RF: 0 albuterol sulfate [Ventolin HFA] 90 mcg/actuation HFA aerosol inhaler 2 puff inhalation Q6H PRN (Reason: shortness of breath or wheezing) Qty: 18 RF: 2 (DME) OneTouch Ultra Blue Test Strip Strip See Rx Instructions .ROUTE .MEDSUPPLY Qty: 200 RF: 4 (DME) lancets [OneTouch Delica Lancets] 33 gauge misc See Rx Instructions .ROUTE .MEDSUPPLY Qty: 200 RF: 4 (DME) pen needle, diabetic [BD Ultra-Fine Mini Pen Needle] 31 gauge x 3/16 needle See Rx Instructions .ROUTE .MEDSUPPLY Qty: 200 RF: 2 duloxetine 60 mg capsule,delayed release(DR/EC) 60 mg PO DAILY Qty: 90 RF: 1 duloxetine 30 mg capsule,delayed release(DR/EC) 30 mg PO DAILY Qty: 90 RF: 1 omeprazole 40 mg capsule,delayed release(DR/EC) 40 mg PO DAILY Qty: 90 RF: 2 trazodone 50 mg tablet 50 mg PO BEDTIME Qty: 30 RF: 3 Lantus Solostar U-100 Insulin 100 unit/mL (3 mL) insulin pen 60 unit SUBCUT BID Qty: 45 RF: 5 furosemide 40 mg tablet See Rx Instructions PO DAILY Qty: 45 RF: 2 atorvastatin 40 mg tablet 20 mg PO .AT BEDTIME Qty: 90 RF: 0 losartan 25 mg tablet 12.5 mg PO DAILY Qty: 90 RF: 0 metoprolol succinate 50 mg tablet extended release 24 hr 50 mg PO BEDTIME Qty: 90 RF: 1 gabapentin 600 mg tablet 600 mg PO BID 30 Days Qty: 60 RF: 2 insulin lispro [Humalog KwikPen Insulin] 100 unit/mL insulin pen 10 unit SUBCUT TID Qty: 30 RF: 1 metformin 1,000 mg tablet 1,000 mg PO BID Qty: 60 RF: 5 Tylenol Extra Strength 500 mg Tablet 500 mg PO PRN RF: 0 iron 325 mg (65 mg iron) Tablet 325 mg PO DAILY RF: 0 Ozempic 1 mg/dose (2 mg/1.5 mL) pen injector 1 mg SUBCUT Q7D RF: 0 Discharge Orders: Discharge ED (Routine); Ordered 12/29/20 Ordered By: Oswaldo Shea Referrals: Irene Verma DO [Primary Care Provider] - Discharge Diet: Usual diet Discharge Activity: Increase activity as tolerated Patient Instructions: Contusion in Adults (ED) Activity Restrictions/Additional Instructions: Follow-up with medical provider as directed. Take medications as prescribed. Return to the ER or your medical provider if condition worsens. Please read and understand discharge instructions. If any questions ask please. Please be aware that your blood sugar might go up for next few days due to steroid shot you received. I am recommending apply ice to the area as needed. Try to increase your range of motion. If no significant provement noted in few days follow back up with your family medical provider. Coding Level of Care Code ED Staff Attorney for Chg Fwd Exam Detailed Documented by User: CIELO Girard 12/29/20 20:30 HPI - Extremity Problem General: Chief complaint: Extremity Injury, Lower Stated complaint: R hip pain Time Seen by Provider: 12/29/20 16:19 [facility] PFSH: Medical History Anxiety CHF (congestive heart failure) COPD (chronic obstructive pulmonary disease) Dyslipidemia Essential hypertension Fibromyalgia GERD (gastroesophageal reflux disease) History of 2019 novel coronavirus disease (COVID-19) detention (current) use of opiate analgesic Pain management contract signed Reactive depression Type 2 diabetes mellitus, with long-term current use of insulin Surgical History H/O cataract extraction H/O knee surgery H/O tubal ligation History of cholecystectomy Family History Other Diabetes Stroke Social History Smoking and tobacco status: never smoked Alcohol intake: never Course Vital Signs: Vital signs: Vital Signs Temperature 97.1 F L 12/29/20 16:04 Pulse Rate 80 12/29/20 16:16 Respiratory Rate 16 12/29/20 16:16 Blood Pressure 125/79 12/29/20 16:16 Pulse Oximetry 94 12/29/20 16:16 MDM - Extremity (Nontraumatic) MDM Narrative: Medical decision making narrative: Patient signed over by JACOB Bland. Radiology studies were negative. Patient desired injection for pain. Does not want any narcotics. Patient instructed follow-up primary care provider if no significant provement. Discharge Plan Discharge Patient Disposition: Home Clinical Impression: Contusion of right hip Qualifiers: Encounter type: initial encounter Qualified Code(s): S70.01XA - Contusion of right hip, initial encounter Condition: Stable Prescriptions: New Voltaren 1 % gel 4 g topical QID Qty: 100 RF: 0 No Action nitroglycerin 0.4 mg tablet, sublingual 0.4 mg SUBLINGUAL Q5M PRN (Reason: Chest Pain) RF: 0 albuterol sulfate 2.5 mg /3 mL (0.083 %) solution for nebulization 2.5 mg inhalation Q4H PRN (Reason: shortness of breath or wheezing) Qty: 180 RF: 0 albuterol sulfate [Ventolin HFA] 90 mcg/actuation HFA aerosol inhaler 2 puff inhalation Q6H PRN (Reason: shortness of breath or wheezing) Qty: 18 RF: 2 (DME) OneTouch Ultra Blue Test Strip Strip See Rx Instructions .ROUTE .MEDSUPPLY Qty: 200 RF: 4 (DME) lancets [OneTouch Delica Lancets] 33 gauge misc See Rx Instructions .ROUTE .MEDSUPPLY Qty: 200 RF: 4 (DME) pen needle, diabetic [BD Ultra-Fine Mini Pen Needle] 31 gauge x 3/16 needle See Rx Instructions .ROUTE .MEDSUPPLY Qty: 200 RF: 2 duloxetine 60 mg capsule,delayed release(DR/EC) 60 mg PO DAILY Qty: 90 RF: 1 duloxetine 30 mg capsule,delayed release(DR/EC) 30 mg PO DAILY Qty: 90 RF: 1 omeprazole 40 mg capsule,delayed release(DR/EC) 40 mg PO DAILY Qty: 90 RF: 2 trazodone 50 mg tablet 50 mg PO BEDTIME Qty: 30 RF: 3 Lantus Solostar U-100 Insulin 100 unit/mL (3 mL) insulin pen 60 unit SUBCUT BID Qty: 45 RF: 5 furosemide 40 mg tablet See Rx Instructions PO DAILY Qty: 45 RF: 2 atorvastatin 40 mg tablet 20 mg PO .AT BEDTIME Qty: 90 RF: 0 losartan 25 mg tablet 12.5 mg PO DAILY Qty: 90 RF: 0 metoprolol succinate 50 mg tablet extended release 24 hr 50 mg PO BEDTIME Qty: 90 RF: 1 gabapentin 600 mg tablet 600 mg PO BID 30 Days Qty: 60 RF: 2 insulin lispro [Humalog KwikPen Insulin] 100 unit/mL insulin pen 10 unit SUBCUT TID Qty: 30 RF: 1 metformin 1,000 mg tablet 1,000 mg PO BID Qty: 60 RF: 5 Tylenol Extra Strength 500 mg Tablet 500 mg PO PRN RF: 0 iron 325 mg (65 mg iron) Tablet 325 mg PO DAILY RF: 0 Ozempic 1 mg/dose (2 mg/1.5 mL) pen injector 1 mg SUBCUT Q7D RF: 0 Discharge Orders: Discharge ED (Routine); Ordered 12/29/20 Ordered By: Oswaldo Shea Referrals: Irene Verma DO [Primary Care Provider] - Discharge Diet: Usual diet Discharge Activity: Increase activity as tolerated Patient Instructions: Contusion in Adults (ED) Activity Restrictions/Additional Instructions: Follow-up with medical provider as directed. Take medications as prescribed. Return to the ER or your medical provider if condition worsens. Please read and understand discharge instructions. If any questions ask please. Please be aware that your blood sugar might go up for next few days due to steroid shot you received. I am recommending apply ice to the area as needed. Try to increase your range of motion. If no significant provement noted in few days follow back up with your family medical provider. Coding Level of Care Code ED Staff Attorney for Shamar Fwtim Exam Detailed
--- NOTE | 2020-12-29 16:59 | CTR_ITS ---
PROCEDURE INFORMATION: Exam: CT Right Lower Extremity Without Contrast, Hip Exam date and time: 12/29/2020 5:02 PM Age: 69 years old Clinical indication: Injury or trauma; Fall; Blunt trauma; Hip; Right; Additional info: R hip pain/trauma; Trouble with ambulation. Fall backwards x 3 days. Worsening when ambulate TECHNIQUE: Imaging protocol: CT of the Right lower extremity without contrast was performed. Exam focused on the hip. Radiation optimization: All CT scans at this facility use at least one of these dose optimization techniques: automated exposure control; mA and/or kV adjustment per patient size (includes targeted exams where dose is matched to clinical indication); or iterative reconstruction. COMPARISON: CR XR hip RT 2-3V wo/w pel* [id number] 12/29/2020 4:46 PM RADIATION DOSE METRICS: Total DLP (mGy-cm): 2076.2 FINDINGS: Bones/joints: Unremarkabl. No acute fracture or dislocation. Soft tissues: Unremarkable CT/CT hip RT wo con* [id number] IMPRESSION: Negative for acute right hip bony abnormality. Radiation Dose CTDIVOL = (mGy): DLP = 2076.2 (mGy-cm)
[2020-12-29] MEDS: methylPREDNISolone (DEPO) 40 mg/mL INJ 1 mL IM (18:16)
== END 2020-12-29 18:18 | disposition home or self-care (01) ==
PROVIDERS: Emergency Provider Nurse Practitioner Family; PCP Family Medicine
DX: S70.01XA Contusion of right hip, initial encounter (principal); Z79.4 Long term (current) use of insulin; W18.30XA Fall on same level, unspecified, initial encounter; E11.9 Type 2 diabetes mellitus without complications
CPT/HCPCS: 73502; 73700; 96372; 99283; J1030

== ENCOUNTER → 2021-03-04 08:36 | Outpatient (BNVA) | payer MEDICARE, MEDICAID, SELFPAY | PROVIDERS: PCP Family Medicine; Visit Provider Family Medicine | DX: E11.9 Type 2 diabetes mellitus without complications (principal); Z79.4 Long term (current) use of insulin; I10 Essential (primary) hypertension; R10.12 Left upper quadrant pain | CPT/HCPCS: 80053; 83036; 83690; 85025 ==

== ENCOUNTER → 2021-05-27 09:18 | Outpatient (BNVA) | payer MEDICARE, MEDICAID, SELFPAY | PROVIDERS: PCP Family Medicine; Visit Provider Family Medicine | DX: E11.9 Type 2 diabetes mellitus without complications (principal); Z79.4 Long term (current) use of insulin; I10 Essential (primary) hypertension; Z68.36 Body mass index [BMI] 36.0-36.9, adult | CPT/HCPCS: 80053; 83036 ==

== ENCOUNTER → 2021-08-26 09:20 | Outpatient (BNVA) | payer MEDICARE, MEDICAID, SELFPAY | PROVIDERS: PCP Family Medicine; Visit Provider Family Medicine | DX: E11.9 Type 2 diabetes mellitus without complications (principal); E78.5 Hyperlipidemia, unspecified; F32.9 Major depressive disorder, single episode, unspecified; I10 Essential (primary) hypertension; Z79.4 Long term (current) use of insulin | CPT/HCPCS: 80053; 80061; 82043; 83036 ==

== ENCOUNTER → 2021-09-05 00:01 | Outpatient (BNVA) | payer MEDICARE, MEDICAID, SELFPAY | PROVIDERS: PCP Family Medicine; Visit Provider Family Medicine | DX: R50.9 Fever, unspecified (principal); Z20.822 Contact with and (suspected) exposure to COVID-19 | CPT/HCPCS: 87635 ==

== ENCOUNTER → 2021-09-27 08:30 | Outpatient (BNVA) | payer MEDICARE, MEDICAID, SELFPAY | PROVIDERS: PCP Family Medicine; Visit Provider Family Medicine | DX: E78.5 Hyperlipidemia, unspecified (principal) | CPT/HCPCS: 80053 ==

== ENCOUNTER 2021-10-31 | Outpatient (CLI) | payer MEDICARE, MEDICAID, SELFPAY | END 2021-10-31 00:01 | disposition home or self-care (01) | LOC: RAD 12-22 10:25 | PROVIDERS: PCP Family Medicine; Visit Provider Family Medicine | DX: Z12.31 Encounter for screening mammogram for malignant neoplasm of breast (principal); R10.2 Pelvic and perineal pain | CPT/HCPCS: 88175 ==

== ENCOUNTER → 2021-11-28 11:26 | Outpatient (BNVA) | payer MEDICARE, MEDICAID, SELFPAY | PROVIDERS: PCP Family Medicine; Visit Provider Family Medicine | DX: E11.9 Type 2 diabetes mellitus without complications (principal); Z79.4 Long term (current) use of insulin; I10 Essential (primary) hypertension; E78.5 Hyperlipidemia, unspecified; G25.0 Essential tremor | CPT/HCPCS: 80053; 83036 ==

== ENCOUNTER 2021-11-30 15:24 | Outpatient (CLI) | payer MEDICARE, MEDICAID, SELFPAY ==
--- NOTE | 2021-11-30 16:10 | US_ITS ---
WS: [id number] TRANSABDOMINAL PELVIC AND TRANSVAGINAL PELVIC ULTRASOUND HISTORY: pelvic pain in female COMPARISON: None available. Uterus: 7.8 cm x 4.4 cm x 3.2 cm. Normal size for age uterus. The uterus is anteverted. Endometrium: 0.4 cm. Normal size endometrium. There is a small amount of fluid along the endometrial canal. Neither ovary is identified. No adnexal masses. There is a large amount of GI tract content obscuring the adnexa. US/US pelvic with transvaginal IMPRESSION: 1. Neither ovary identified. 2. Normal endometrium.
== END 2021-11-30 15:25 | disposition home or self-care (01) ==
LOC: RAD 15:37
PROVIDERS: PCP Family Medicine; Visit Provider Family Medicine
DX: R10.2 Pelvic and perineal pain (principal)
CPT/HCPCS: 76830; 76856

== ENCOUNTER → 2021-12-02 11:19 | Outpatient (BNVA) | payer MEDICARE, MEDICAID, SELFPAY | PROVIDERS: PCP Family Medicine; Referring Provider Family Medicine; Visit Provider Obstetrics & Gynecology | DX: R10.2 Pelvic and perineal pain (principal) | CPT/HCPCS: 81000 ==

== ENCOUNTER 2021-12-27 15:06 | Outpatient (CLI) | payer MEDICARE, MEDICAID, SELFPAY ==
--- NOTE | 2021-12-27 15:20 | MM_ITS ---
WS: [id number] BILATERAL 3D TOMOSYNTHESIS DIGITAL SCREENING MAMMOGRAPHY WITH CAD CLINICAL INFORMATION: SCREENING HISTORY: Screening mammogram. No current complaints. COMPARISON: None. TECHNIQUE: Bilateral CC and MLO views. FINDINGS: Scattered fibroglandular densities bilaterally. A few incidental calcifications. Linear calcification s posterior depth LEFT breast superior quadrant appears to be vascular. Incidental clustered punctate calcifications. RIGHT breast is unremarkable MM/[place] [id number] IMPRESSION: BI-RADS: 2-Benign FOLLOW UP: 1 Year Follow-up Recommend return to annual screening mammography.
== END 2021-12-27 15:07 | disposition home or self-care (01) ==
PROVIDERS: PCP Family Medicine; Visit Provider Family Medicine
DX: Z12.31 Encounter for screening mammogram for malignant neoplasm of breast (principal)
CPT/HCPCS: 77063; 77067

== ENCOUNTER → 2022-03-30 09:41 | Outpatient (BNVA) | payer MEDICARE, MEDICAID, SELFPAY | PROVIDERS: PCP Family Medicine; Visit Provider Family Medicine | DX: E11.9 Type 2 diabetes mellitus without complications (principal); Z79.4 Long term (current) use of insulin; M54.12 Radiculopathy, cervical region | CPT/HCPCS: 80053; 83036 ==

== ENCOUNTER → 2022-06-22 09:55 | Outpatient (BNVA) | payer MEDICARE, MEDICAID, SELFPAY | PROVIDERS: PCP Family Medicine; Visit Provider Family Medicine | DX: E11.65 Type 2 diabetes mellitus with hyperglycemia (principal); I10 Essential (primary) hypertension; E11.9 Type 2 diabetes mellitus without complications; Z23 Encounter for immunization; J01.90 Acute sinusitis, unspecified; J43.1 Panlobular emphysema; B96.89 Other specified bacterial agents as the cause of diseases classified elsewhere; Z79.4 Long term (current) use of insulin | CPT/HCPCS: 80053; 82043; 83036; 85025 ==

== ENCOUNTER → 2022-07-10 09:43 | Outpatient (BNVA) | payer MEDICARE, MEDICAID, SELFPAY | PROVIDERS: PCP Family Medicine; Visit Provider Anesthesiology Pain Medicine | DX: G89.29 Other chronic pain (principal); M51.16 Intervertebral disc disorders with radiculopathy, lumbar region; M47.816 Spondylosis without myelopathy or radiculopathy, lumbar region; M79.604 Pain in right leg | CPT/HCPCS: 72110; 99214 ==

== ENCOUNTER → 2022-08-14 11:08 | Outpatient (BNVA) | payer MEDICARE, MEDICAID, SELFPAY | PROVIDERS: PCP Family Medicine; Referring Provider Family Medicine; Visit Provider Specialist | DX: G25.0 Essential tremor (principal); G45.9 Transient cerebral ischemic attack, unspecified; F41.9 Anxiety disorder, unspecified | CPT/HCPCS: 99205 ==

== ENCOUNTER → 2022-08-21 14:46 | Outpatient (BNVA) | payer MEDICARE, MEDICAID, SELFPAY | PROVIDERS: PCP Family Medicine; Referring Provider Specialist; Visit Provider Specialist | DX: G45.9 Transient cerebral ischemic attack, unspecified (principal); R56.9 Unspecified convulsions | CPT/HCPCS: 95812 ==

== ENCOUNTER → 2022-09-14 09:54 | Outpatient (BNVA) | payer MEDICARE, MEDICAID, SELFPAY | PROVIDERS: PCP Family Medicine; Visit Provider Family Medicine | DX: E11.9 Type 2 diabetes mellitus without complications (principal); Z79.4 Long term (current) use of insulin; E78.5 Hyperlipidemia, unspecified; F51.02 Adjustment insomnia | CPT/HCPCS: 80053; 80061; 83036 ==

== ENCOUNTER 2022-09-26 09:26 | Outpatient (CLI) | payer MEDICARE, MEDICAID, SELFPAY ==
--- NOTE | 2022-09-26 09:30 | MR_ITS ---
WS: [id number] MRI BRAIN WITHOUT CONTRAST HISTORY: G25.0 - Essential tremor COMPARISON: CT head 05/07/2020. TECHNIQUE: Diffusion imaging, multiplanar T1, T2 and FLAIR imaging obtained. No evidence for acute infarct or hemorrhage. Goodwin-white matter differentiation is normal. Mild symmetric atrophy. Mild small vessel ischemic changes in the supratentorial white matter. Bilate ral increased T2 signal and FLAIR signal in the enrique. The increased signal is symmetric. No prior lar ge territory infarcts. No hemorrhage. Ventricles and extra-axial spaces are normal. No inferior displacement of cerebellar tonsils. The sella turcica and pituitary gland are unremarkabl e. Dural venous sinuses and [place] demonstrate no abnormality on this unenhanced studies. Paranasal sinuses: Mucoperiosteal thickening in the sphenoid sinuses, greatest on the LEFT. No air-fl uid levels. Mastoid air cells: Normal. Calvarium and scalp: Intact. MR/MR head wo con* [id number] IMPRESSION: 1. No acute infarct or diffusion abnormality. 2. Mild atrophy and supratentorial small vessel ischemic disease. 3. Moderate increased signal in the enrique is bilateral and symmetric. Most like ly due to small vessel ischemic disease. 4. Moderate sphenoid sinus disease.
== END 2022-09-26 09:27 | disposition home or self-care (01) ==
PROVIDERS: PCP Family Medicine; Visit Provider Specialist
DX: G25.0 Essential tremor (principal); G45.9 Transient cerebral ischemic attack, unspecified
CPT/HCPCS: 70551

== ENCOUNTER → 2022-12-18 11:21 | Outpatient (BNVA) | payer MEDICARE, MEDICAID, SELFPAY | PROVIDERS: PCP Family Medicine; Visit Provider Family Medicine | DX: E11.9 Type 2 diabetes mellitus without complications (principal); Z79.4 Long term (current) use of insulin; R42 Dizziness and giddiness; I10 Essential (primary) hypertension | CPT/HCPCS: 80053; 83036 ==

== ENCOUNTER 2023-01-23 11:19 | Outpatient (CLI) | payer MEDICARE, MEDICAID, SELFPAY ==
--- NOTE | 2023-01-23 12:15 | USCV_ITS ---
Glenda Aden Age: 72 Gender: F : 1950 Exam Date: 01/23/2023 11:34 Ordering Phys: Irene Verma DO Technologist: Michael Moreno Exam Location[place] [facility] [place] Indication: dizziness Risk Factors: Previous Vascular Surgery: Right Brachial BP: / Left Brachial BP: / Right Left Velocity (cm/s) Spectral Plaque Velocity (cm/s) Spectral Plaque Syst/Diast Broadening Syst/Diast Broadening 86.00/ 22.10 Prox CCA 78.30 / 20.90 69.90/ 17.90 Mid CCA 72.80 / 20.90 57.50/ 15.50 Distal CCA 82.70 / 25.40 51.90/ 10.50 Prox ICA 49.30 / 16.60 68.40/ 23.00 Mid ICA 50.60 / 16.10 86.80/ 30.90 Distal ICA 51.40 / 18.30 109.20 ECA 95.90 0.98 ICA/CCA 0.69 Antegrade Vertebral Antegrade 41.60/ 8.50 cm/s 59.50/ 19.80 cm/s Tri Subclavian Tri 98.10 95.90 CONCLUSIONS Right ICA stenosis <50%. Mild atheromatous plaque right carotid bulb/ICA. Left ICA stenosis <50%. Mild atheromatous plaque left carotid bulb/ICA. Normal antegrade Doppler flow noted in the right vertebral artery. Normal antegrade Doppler flow noted in the left vertebral artery. Dionisio Ko MD (Electronically Signed) Final Date: 23 January 2023 13:09 S
== END 2023-01-23 11:20 | disposition home or self-care (01) ==
PROVIDERS: PCP Family Medicine; Visit Provider Family Medicine
DX: I65.23 Occlusion and stenosis of bilateral carotid arteries (principal); R42 Dizziness and giddiness
CPT/HCPCS: 80053; 83036; 93880

== ENCOUNTER → 2023-03-19 09:26 | Outpatient (BNVA) | payer MEDICARE, MEDICAID, SELFPAY | PROVIDERS: PCP Family Medicine; Visit Provider Family Medicine | DX: E11.9 Type 2 diabetes mellitus without complications (principal); Z79.4 Long term (current) use of insulin | CPT/HCPCS: 80053; 83036 ==

== ENCOUNTER → 2023-06-11 10:09 | Outpatient (BNVA) | payer MEDICARE, MEDICAID, SELFPAY | PROVIDERS: PCP Family Medicine; Visit Provider Family Medicine | DX: E11.9 Type 2 diabetes mellitus without complications (principal); Z79.4 Long term (current) use of insulin; Z23 Encounter for immunization | CPT/HCPCS: 80053; 82043; 83036; 85025 ==

== ENCOUNTER 2023-06-21 13:43 | Outpatient (CLI) | payer MEDICARE, MEDICAID, SELFPAY ==
--- NOTE | 2023-06-21 14:17 | MM_ITS ---
WS: [id number] BILATERAL 3D TOMOSYNTHESIS DIGITAL SCREENING MAMMOGRAPHY WITH CAD CLINICAL INFORMATION: SCREEN HISTORY: Screening mammogram. No current complaints. COMPARISON: 12/27/2021 TECHNIQUE: Bilateral CC and MLO views. FINDINGS: Scattered fibroglandular densities bilaterally. Incidental vascular calcifications bilaterally. Heter ogeneous suspicious clustered calcifications outer LEFT breast posterior depth appear progressed comp ared to previous with new pleomorphic calcifications. Recommend further evaluation with stereotactic guided biopsy. RIGHT breast is unremarkable and unchanged. IMPRESSION: MM/[place] [id number] BI-RADS: 4-Suspicious Finding-Biopsy Should Be Considered FOLLOW UP: Stereotactic Biopsy Recommended Recommend stereotactic guided biopsy of the suspicious progressing clustered LE FT breast calcifications described above.
== END 2023-06-21 13:44 | disposition home or self-care (01) ==
LOC: RAD 13:43
PROVIDERS: PCP Family Medicine; Visit Provider Family Medicine
DX: Z12.31 Encounter for screening mammogram for malignant neoplasm of breast (principal); R92.1 Mammographic calcification found on diagnostic imaging of breast
CPT/HCPCS: 77063; 77067

== ENCOUNTER 2023-07-24 12:32 | Outpatient (CLI) | payer MEDICARE, MEDICAID, SELFPAY ==
--- NOTE | 2023-07-24 | MM_ITS ---
WS: [id number] STEREOTACTIC LEFT BREAST BIOPSY WITH VACUUM ASSISTANCE HISTORY: LEFT breast calcifications. Biopsy recommended. COMPARISON: 06/21/2023, 12/27/2021 Procedure, risks and complications were explained to the patient. Medications and prior radiographs a re reviewed. LEFT breast calcifications are located. Calcifications in the upper outer quadrant. Calcifications ar e targeted in the craniocaudal projection. The skin is cleansed with ChloraPrep and anesthetized with 1% buffered lidocaine. Deeper soft tissues anesthetized with a combination of lidocaine and epinephr ine. Small dermatome is made. Needle advanced into the LEFT breast. Stereotactic imaging reveals appr opriate positioning adjacent calcifications. Multiple vacuum-assisted core biopsies are obtained. No complications were encountered. Post biopsy specimen radiograph reveals numerous calcifications. Biopsy clip is placed in the cavity. Post imaging reveals good placement of the clip. No migration. S ignificant decrease in number of calcifications post biopsy. Pressures held for approximately 15 minutes. No bleeding. Dressing applied. Patient discharged with n o complications. There is no bleeding. With any questions or complications patient is to return. IMPRESSION: 1. Uncomplicated LEFT breast stereotactic biopsy. 2. Specimen contains numerous calcifications. MM/MM surgical specimen LT Pathology: Benign proliferative breast disease with dystrophic calcification. N o atypia or lobular hyperplasia or malignancy. RECOMMENDATION: Diagnostic LEFT mammogram 6 months.
--- NOTE | 2023-07-24 | MM_ITS ---
WS: [id number] STEREOTACTIC LEFT BREAST BIOPSY WITH VACUUM ASSISTANCE HISTORY: LEFT breast calcifications. Biopsy recommended. COMPARISON: 06/21/2023, 12/27/2021 Procedure, risks and complications were explained to the patient. Medications and prior radiographs a re reviewed. LEFT breast calcifications are located. Calcifications in the upper outer quadrant. Calcifications ar e targeted in the craniocaudal projection. The skin is cleansed with ChloraPrep and anesthetized with 1% buffered lidocaine. Deeper soft tissues anesthetized with a combination of lidocaine and epinephr ine. Small dermatome is made. Needle advanced into the LEFT breast. Stereotactic imaging reveals appr opriate positioning adjacent calcifications. Multiple vacuum-assisted core biopsies are obtained. No complications were encountered. Post biopsy specimen radiograph reveals numerous calcifications. Biopsy clip is placed in the cavity. Post imaging reveals good placement of the clip. No migration. S ignificant decrease in number of calcifications post biopsy. Pressures held for approximately 15 minutes. No bleeding. Dressing applied. Patient discharged with n o complications. There is no bleeding. With any questions or complications patient is to return. IMPRESSION: 1. Uncomplicated LEFT breast stereotactic biopsy. 2. Specimen contains numerous calcifications. MM/[place] [id number] Pathology: Benign proliferative breast disease with dystrophic calcification. N o atypia or lobular hyperplasia or malignancy. RECOMMENDATION: Diagnostic LEFT mammogram 6 months.
--- NOTE | 2023-07-24 12:41 | MM_ITS ---
WS: [id number] STEREOTACTIC LEFT BREAST BIOPSY WITH VACUUM ASSISTANCE HISTORY: LEFT breast calcifications. Biopsy recommended. COMPARISON: 06/21/2023, 12/27/2021 Procedure, risks and complications were explained to the patient. Medications and prior radiographs a re reviewed. LEFT breast calcifications are located. Calcifications in the upper outer quadrant. Calcifications ar e targeted in the craniocaudal projection. The skin is cleansed with ChloraPrep and anesthetized with 1% buffered lidocaine. Deeper soft tissues anesthetized with a combination of lidocaine and epinephr ine. Small dermatome is made. Needle advanced into the LEFT breast. Stereotactic imaging reveals appr opriate positioning adjacent calcifications. Multiple vacuum-assisted core biopsies are obtained. No complications were encountered. Post biopsy specimen radiograph reveals numerous calcifications. Biopsy clip is placed in the cavity. Post imaging reveals good placement of the clip. No migration. S ignificant decrease in number of calcifications post biopsy. Pressures held for approximately 15 minutes. No bleeding. Dressing applied. Patient discharged with n o complications. There is no bleeding. With any questions or complications patient is to return. IMPRESSION: 1. Uncomplicated LEFT breast stereotactic biopsy. 2. Specimen contains numerous calcifications. MM/[place] [id number] Pathology: Benign proliferative breast disease with dystrophic calcification. N o atypia or lobular hyperplasia or malignancy. RECOMMENDATION: Diagnostic LEFT mammogram 6 months.
== END 2023-07-24 12:33 | disposition home or self-care (01) ==
LOC: RAD 12:33
PROVIDERS: PCP Family Medicine; Visit Provider Family Medicine
DX: D24.2 Benign neoplasm of left breast (principal); R92.1 Mammographic calcification found on diagnostic imaging of breast; N63.20 Unspecified lump in the left breast, unspecified quadrant
CPT/HCPCS: 19081; 77065; 88305

== ENCOUNTER → 2023-09-21 08:46 | Outpatient (BNVA) | payer MEDICARE, MEDICAID, SELFPAY | PROVIDERS: PCP Family Medicine; Visit Provider Family Medicine | DX: E11.9 Type 2 diabetes mellitus without complications (principal); Z79.4 Long term (current) use of insulin | CPT/HCPCS: 80053; 80061; 83036 ==

== ENCOUNTER → 2023-12-27 09:08 | Outpatient (BNVA) | payer OTHER, MEDICAID, SELFPAY | PROVIDERS: PCP Family Medicine; Visit Provider Family Medicine | DX: E11.9 Type 2 diabetes mellitus without complications (principal); Z79.4 Long term (current) use of insulin | CPT/HCPCS: 80048; 83036 ==

== ENCOUNTER 2024-01-21 18:08 | Emergency (ER) | payer MEDICARE, MEDICAID, SELFPAY ==
[2024-01-21 18:17] VITALS: BP 135/81; PULSE 75; RESP 18; TEMP 36.7; O2SAT 95
--- NOTE | 2024-01-21 19:41 | W.ED.URI ---
HPI - URI/Sore Throat General: Chief Complaint: Upper Respiratory Infection Stated Complaint: thoat pain cough chest pain, sob Time Seen by Provider: 01/21/24 18:23 Source: patient and family Mode of arrival: ambulatory Limitations: no limitations History of Present Illness: Patient presents emergency department today for evaluation treatment of 2 weeks of worsening upper respiratory symptoms and cough. Patient states that originally she had headache, sore throat, nasal congestion. She also reports several episodes of diarrhea early on which have resolved. No vomiting. No more GI involvement. Patient is remaining afebrile throughout this illness but continues to have nasal congestion and worsening cough. She states she feels like her chest is congested but is unable to get it out. She states when she coughs she has pain in her chest. She has a barking type cough. Patient does deal with COPD and has several inhalers. She reports using these inhalers at home with some improvement. Patient has recurrent issues with pneumonia reporting pneumonia usually once a year. Review of Systems General: Reports: 10 or more systems reviewed and unremarkable except in HPI and below PFSH ED PFSH: Medical History Pancreatitis Due to Ozempic Type 2 diabetes mellitus, with long-term current use of insulin History of 2019 novel coronavirus disease (COVID-19) care home (current) use of opiate analgesic Pain management contract signed Dyslipidemia Essential hypertension Fibromyalgia CHF (congestive heart failure) COPD (chronic obstructive pulmonary disease) Anxiety GERD (gastroesophageal reflux disease) Reactive depression Surgical History History of cholecystectomy H/O cataract extraction H/O tubal ligation H/O knee surgery Family History Sister Diabetes Hyperlipidemia Hypertension Father Stroke Denies family history of Colon cancer Ovarian cancer Clotting disorder Heart disease Breast cancer Anesthesia complication Bleeding disorder Uterine cancer Thyroid disease Social History Smoking and tobacco/nicotine status: never used tobacco/nicotine Alcohol intake: never Substance/Drug Use: never Physical Exam Const: COMMON NORMALS: no acute distress, patient oriented x3 and alert Eye: COMMON NORMALS: Equal, round and reactive pupils present, EOMs intact bilaterally and conjunctivae normal CONJUNCTIVA: Yes conjunctivae normal PUPIL: Yes Equal, round and reactive pupils present Neck/C-Spine: COMMON NORMALS: no JVD Lymph: LYMPHATIC: no lymphadenopathy noted Resp: COMMON NORMALS: normal respiratory effort, No retractions and No use of accessory muscles OTHER: Patient's cough is harsh and barking like a bronchitis but, on auscultation, patient has diminished lung sounds throughout though there is an occasional rhonchi on late expiration noted in the left lower lobe region. Pulse ox is 95% on room air. Cardio: COMMON NORMALS: no JVD and regular rate RATE: regular rate : COMMON NORMALS: Yes no CVA tenderness BLADDER/KIDNEY EXAM: Yes no CVA tenderness Back/Pelvis: COMMON NORMALS: no CVA tenderness, thoracic and lumbar spine normal to inspection and thoraco-lumbar ROM normal Extremity: COMMON NORMALS: normal to inspection, full ROM and no pedal edema Neuro: COMMON NORMALS: patient oriented x3 SENSORIUM/ORIENTATION: Yes alert Skin: COMMON NORMALS: no rashes or lesions noted and turgor normal GENERAL SKIN EXAM: no rashes or lesions noted and turgor normal Course Vital Signs: Vital signs: Vital Signs Temperature 98.1 F 01/21/24 18:17 Pulse Rate 75 01/21/24 18:17 Respiratory Rate 18 01/21/24 18:17 Blood Pressure 135/81 01/21/24 18:17 Pulse Oximetry 95 01/21/24 18:17 Oxygen Delivery Me thod Room Air 01/21/24 18:17 MDM - URI/Sore Throat Medical Decision Making Patient presents today for concerns of continued respiratory symptoms. She reports worsening cough with chest tightness and congestion with a history of COPD with minimal response to her inhalers at home. She has not had fever but states she deals with recurrent pneumonias. Auscultation of the lungs do find some rhonchi noted in the left lower lobe. Explained to the patient that with her history and examination I would like to treat her for pneumonia. I did offer her an x-ray however, as it would not change the recommendation for treatment, the patient is declining at this time. We discussed a breathing treatment however, patient reports that being on Trelegy she was told not to do her breathing treatments. She states she still uses her inhaler daily so, we will hold off on additional breathing treatments. Patient is treated with a steroid burst and doxycycline to give sinusitis coverage and lower respiratory coverage. Medication to help with cough also provided as she states it is hard for her to sleep. She is encouraged to follow-up with her primary care doctor in the next few days for an overall recheck or to return to the emergency department if acutely worsening. Patient verbalizes understanding and agreement to treatment plan. Differential Diagnosis Likely upper respiratory infection, sinusitis and bronchitis; Unlikely croup, viral infection, influenza or pharyngitis No radiology studies performed this visit Discharge Plan Discharge Patient Disposition: Home Clinical Impression: Bronchitis, Acute lower respiratory tract infection COPD (chronic obstructive pulmonary disease) Qualifiers: COPD type: emphysema Emphysema type: panlobular Qualified Code(s): J43.1 - Panlobular emphysema Condition: Stable Prescriptions: New Methylpred DP 4 mg tablets,dose pack See Rx Instructions .ROUTE .COMPLEX Qty: 21 0RF Rx Instructions: for 6 days doxycycline hyclate 100 mg tablet 100 mg PO BID 10 Days Qty: 20 0RF benzonatate 100 mg capsule 100 mg PO TID Qty: 30 0RF No Action insulin aspart U-100 [Novolog FlexPen U-100 Insulin] 100 unit/mL (3 mL) insulin pen 15 unit SUBCUT TID 90 Days Qty: 40.5 0RF (DME) nebulizer, tubing, and supplies See Rx Instructions .Route .MEDSUPPLY Qty: 1 0RF Rx Instructions: As directed (DME) blood sugar diagnostic Strip See Rx Instructions .ROUTE .MEDSUPPLY Qty: 300 3RF Rx Instructions: three times a day albuterol sulfate 90 mcg/actuation HFA aerosol inhaler See Rx Instructions .ROUTE .COMPLEX Qty: 54 2RF Dose Instruction: USE 2 INHALATIONS ORALLY EVERY 6 HOURS NEEDED FOR SHORTNESS OF BREATH OR WHEEZING Rx Instructions: USE 2 INHALATIONS ORALLY EVERY 6 HOURS NEEDED FOR SHORTNESS OF BREATH OR WHEEZING atorvastatin 40 mg tablet See Rx Instructions .ROUTE .COMPLEX Qty: 90 2RF Dose Instruction: TAKE 1 TABLET DAILY Rx Instructions: TAKE 1 TABLET DAILY furosemide 40 mg tablet See Rx Instructions .ROUTE .COMPLEX Qty: 135 1RF Dose Instruction: TAKE 1 TABLET EVERY OTHER DAY , 2 TABLETS THE OTHER DAYS Rx Instructions: TAKE 1 TABLET EVERY OTHER DAY , 2 TABLETS THE OTHER DAYS metoprolol succinate 50 mg tablet extended release 24 hr See Rx Instructions .ROUTE .COMPLEX Qty: 90 1RF Dose Instruction: TAKE 1 TABLET DAILY Rx Instructions: TAKE 1 TABLET DAILY nitroglycerin 0.4 mg tablet, sublingual 0.4 mg SUBLINGUAL Q5M PRN (Reason: Chest Pain) 90 Days Qty: 10 0RF bupropion HCl [Wellbutrin XL] 150 mg tablet extended release 24 hr 150 mg PO QAM Qty: 90 2RF duloxetine 30 mg capsule,delayed release(DR/EC) See Rx Instructions .ROUTE .COMPLEX Qty: 90 1RF Dose Instruction: TAKE 1 CAPSULE DAILY Rx Instructions: TAKE 1 CAPSULE DAILY duloxetine 60 mg capsule,delayed release(DR/EC) See Rx Instructions .ROUTE .COMPLEX Qty: 90 1RF Dose Instruction: TAKE 1 CAPSULE DAILY Rx Instructions: TAKE 1 CAPSULE DAILY gabapentin 600 mg tablet 600 mg PO TID 90 Days Qty: 270 1RF trazodone 50 mg tablet 50 mg PO BEDTIME Qty: 90 3RF albuterol sulfate 2.5 mg /3 mL (0.083 %) solution for nebulization 2.5 mg inhalation Q4H PRN (Reason: shortness of breath or wheezing) Qty: 180 1RF omeprazole 40 mg capsule,delayed release(DR/EC) See Rx Instructions .ROUTE .COMPLEX Qty: 90 2RF Dose Instruction: TAKE 1 CAPSULE DAILY Rx Instructions: TAKE 1 CAPSULE DAILY Trelegy Ellipta 100-62.5-25 mcg blister with device 1 inh inhalation Q24H Qty: 180 2RF losartan 25 mg tablet See Rx Instructions .ROUTE .COMPLEX Qty: 90 0RF Dose Instruction: TAKE 1 TABLET AT BEDTIME. TAKE ALONG WITH 50MG DOSE. Rx Instructions: TAKE 1 TABLET AT BEDTIME. TAKE ALONG WITH 50MG DOSE. losartan 50 mg tablet 50 mg PO DAILY Qty: 90 0RF metformin 750 mg tablet extended release 24 hr 750 mg PO BID 7 Days Qty: 180 1RF empagliflozin 25 mg tablet 25 mg PO DAILY 90 Days Qty: 90 2RF Lantus Solostar U-100 Insulin 100 unit/mL (3 mL) insulin pen 55 unit SUBCUT BID 90 Days Qty: 99 3RF (DME) OneTouch Ultra Test Strip See Rx Instructions .Route Qty: 100 3RF Rx Instructions: Check BS QID (DME) pen needle, diabetic [BD Ultra-Fine Mini Pen Needle] 31 gauge x 3/16 needle See Rx Instructions .ROUTE .COMPLEX Qty: 100 2RF Dose Instruction: USE 4 TIMES A DAY Rx Instructions: USE 4 TIMES A DAY Tylenol Extra Strength 500 mg Tablet 500 mg PO PRN iron 325 mg (65 mg iron) Tablet 325 mg PO DAILY Discharge Orders: Discharge ED (Routine); Ordered 01/21/24 Ordered By: Livia Han Referrals: Irene Verma DO [Primary Care Provider] - Discharge Diet: Usual diet Discharge Activity: Increase activity as tolerated Patient Instructions: COPD (Chronic Obstructive Pulmonary Disease) (ED), Pneumonia (ED) Activity Restrictions/Additional Instructions: Examination today shows what I suspect is a flareup of your COPD superimposed over the concerns for developing lower respiratory tract infection. I am treating you with a pack of steroid for the COPD and an antibiotic for the lower respiratory tract infection. This will also give a sinus coverage as well. Given use medication which can help with your cough. As with any cough and cold medication, carefully monitor your blood pressure. I did look into your use of your nebulizer when used with your chronic inhalers. There is concerns for issues with your heart rate and blood pressure in addition to some electrolyte abnormalities which can occur with overuse of the inhaler/nebulizer medications. Encourage you to continue using your prescribed daily inhaler and follow-up with your primary care doctor in the next few days to discuss any alternate treatments if needed. However, if you have acutely worsened or have change or worsening of your symptoms you should return to the acute setting for evaluation. Coding Level of Care Code ED Garment Tag Stringer for Shamar Payan
[2024-01-21] MEDS: doxycycline 100 mg Tablet PO (19:46)
[2024-01-21] MEDS: methylPREDNISolone (DEPO) 80 MG/ML INJ 1 mL IM (19:47)
== END 2024-01-21 19:57 | disposition home or self-care (01) ==
PROVIDERS: Emergency Provider Physician Assistant; PCP Family Medicine
DX: J43.1 Panlobular emphysema (principal); J20.9 Acute bronchitis, unspecified; Z79.84 Long term (current) use of oral hypoglycemic drugs; Z79.4 Long term (current) use of insulin; E11.9 Type 2 diabetes mellitus without complications; E78.5 Hyperlipidemia, unspecified; I11.0 Hypertensive heart disease with heart failure; I50.9 Heart failure, unspecified
CPT/HCPCS: 96372; 99284; J1010

== ENCOUNTER → 2024-07-09 11:52 | Outpatient (BNVA) | payer MEDICARE, MEDICAID, SELFPAY | PROVIDERS: PCP Family Medicine; Visit Provider Family Medicine | DX: E11.9 Type 2 diabetes mellitus without complications (principal); E78.5 Hyperlipidemia, unspecified; Z79.4 Long term (current) use of insulin; I11.0 Hypertensive heart disease with heart failure; I50.9 Heart failure, unspecified; K21.9 Gastro-esophageal reflux disease without esophagitis | CPT/HCPCS: 80053; 82043; 82607; 83036; 84443 ==

== ENCOUNTER 2024-08-02 11:16 | Emergency (ER) | payer MEDICARE, MEDICAID, SELFPAY ==
--- NOTE | 2024-08-02 11:18 | XRR_ITS ---
PROCEDURE INFORMATION: Exam: XR Chest Exam date and time: 08/02/2024 12:13 PM Age: 73 years old Clinical indication: Cough TECHNIQUE: Imaging protocol: Radiologic exam of the chest. Views: 1 view. COMPARISON: CR XR chest 1V portable [id number] 05/16/2020 1:20 PM FINDINGS: Tubes, catheters and devices: None. Lungs: Mild bilateral perihilar and basilar interstitial lung opacities, suggesting pulmonary edema versus infiltrates. The peripheral lungs are otherwise clear. No consolidation. Improvement of bilateral lung opacities is demonstrated. Improved expansion of the lungs. Pleural spaces: No pleural effusion. No pneumothorax. Heart/Mediastinum: Mediastinum and mayito appear unremarkable. Vasculature: Mild atherosclerotic calcification demonstrated within the aorta. Bones/joints: Diffusely decreased bone density. Generalized bony degenerative changes. Soft tissues: This study is limited by patient's body habitus. XR/XR chest 1V portable [id number] IMPRESSION: Mild interstitial pulmonary edema versus infiltrates. Improvement.
[2024-08-02 11:20] VITALS: BP 145/71; PULSE 87; RESP 18; TEMP 36.7; O2SAT 93; BMI 34.3
[2024-08-02 11:42] LABS: Rapid Strep A Test Negative (Negative)
--- NOTE | 2024-08-02 12:14 | ED_ITS ---
HPI - URI/Sore Throat 2 General: Chief Complaint: Upper Respiratory Infection Stated Complaint: sore throat, cough Time Seen by Provider: 08/02/24 11:59 Source: patient Mode of arrival: ambulatory Limitations: no limitations History of Present Illness: 73-year-old female states for last 2 day s she has been having some cough congestion states she has had earaches and sore throat as well. Mild headaches. She states she has had some sick contacts feels like she has the flu she does have a history of COPD states her cough has been nonproductive had some mild dyspnea. Associated symptoms: Reports chills and headache(s); Deny abdominal pain, chest pain, diarrhea, fever(s), nausea or vomiting Related Data Home Medications Medication Instructions Recorded Confirmed acetaminophen 500 mg tablet 500 mg PO PRN 05/07/20 08/02/24 (Tylenol Extra Strength) ferrous sulfate 325 mg (65 mg 325 mg PO DAILY 05/07/20 08/02/24 iron) tablet (iron) atorvastatin 40 mg tablet 40 mg PO DAILY 08/02/24 08/02/24 duloxetine 30 mg capsule,delayed 30 mg PO DAILY 08/02/24 08/02/24 release duloxetine 60 mg capsule,delayed 60 mg PO DAILY 08/02/24 08/02/24 release metoprolol succinate 50 mg 50 mg PO DAILY 08/02/24 08/02/24 tablet,extended release 24 hr omeprazole 40 mg capsule,delayed 40 mg PO DAILY 08/02/24 08/02/24 release Previous Rx's Medication Instructions Recorded nebulizer, tubing, and supplies #1 ea 06/22/22 bupropion HCl 150 mg 24 hr tablet, 150 mg PO QAM #90 tabs 02/01/24 extended release (Wellbutrin XL) empagliflozin 25 mg tablet 25 mg PO DAILY 90 days #90 tabs 02/01/24 furosemide 40 mg tablet See Rx Instructions .Route 02/01/24 .COMPLEX #135 tabs gabapentin 600 mg tablet 600 mg PO TID cervical 02/01/24 radiculopathy. 90 days #270 tabs trazodone 50 mg tablet 50 mg PO BEDTIME #90 tabs 02/01/24 losartan 50 mg tablet 50 mg PO DAILY #90 tabs 06/10/24 losartan 25 mg tablet See Rx Instructions .Route 06/12/24 .COMPLEX #90 tabs blood sugar diagnostic (OneTouch #100 ea 07/09/24 Ultra Test strips) insulin aspart U-100 100 unit/mL 15 unit (0.15 mL) SUBCUT TID 90 07/09/24 (3 mL) subcutaneous pen (Novolog days #40.5 mL FlexPen U-100 Insulin aspart) insulin glargine 100 unit/mL (3 55 unit (0.55 mL) SUBCUT BID 90 07/09/24 mL) subcutaneous pen (Lantus days #99 mL Solostar U-100 Insulin) metformin 750 mg tablet,extended 750 mg PO BID 90 days #180 tabs 07/09/24 release 24 hr nitroglycerin 0.4 mg sublingual 0.4 mg sublingual Q5M PRN chest 07/09/24 tablet (Nitrostat) pain #25 tabs pen needle, diabetic 31 gauge x #1,200 ea 07/09/24 3/16 (BD Ultra-Fine Mini Pen Needle) Allergies Allergy/AdvReac Type Severity Reaction Status Date / Time enalaprilat [From Vasotec] AdvReac Mild ADR-Cough Verified 08/02/24 11:23 semaglutide [From Ozempic] AdvReac pancreatiti Verified 08/02/24 11:23 s Review of Systems 2 Const: Reports: chills and body aches; Denies: fever(s) or change in appetite ENMT: Reports: throat pain; Denies: dental pain Card: Denies: chest pain Resp: Reports: non-productive cough; Denies: dyspnea GI: Denies: abdominal pain, nausea, vomiting or diarrhea Musc: Denies: neck pain or back pain Skin/Breast: Denies: rash Neuro: Reports: headache(s) PFSH ED 2 PFSH: Medical History Esophageal spasm nitro is what works Diabetic neuropathy Essential tremor Pancreatitis Due to Ozempic Type 2 diabetes mellitus, with long-term current use of insulin Dyslipidemia Essential hypertension CHF (congestive heart failure) COPD (chronic obstructive pulmonary disease) Anxiety GERD (gastroesophageal reflux disease) Reactive depression Surgical History History of cholecystectomy H/O cataract extraction OU H/O tubal ligation H/O knee surgery right arthroscopic Family History Sister Diabetes Hyperlipidemia Hypertension Father Stroke Denies family history of Colon cancer Ovarian cancer Clotting disorder Heart disease Breast cancer Anesthesia complication Bleeding disorder Uterine cancer Thyroid disease Social History Smoking and tobacco/nicotine status: never used tobacco/nicotine Alcohol intake: never Substance/Drug Use: never Household members: other Details: lives with daughter Marital status: / Number of children: 3 Highest education level completed: Associate Degree: Occupational, Technical, Vocational Program Current occupational status: retired Previous occupational history: [employer] Physical Exam 2 Const: COMMON NORMALS: no acute distress, patient oriented x3 and healthy appearing HENMT: COMMON NORMALS: normocephalic, atraumatic and TM's normal bilaterally HEAD & SCALP: normocephalic and atraumatic TYMPANIC MEMBRANE: TM's normal bilaterally MOUTH: Normal oral and palatal mucosa present THROAT: p osterior oropharynx normal Eye: COMMON NORMALS: Equal, round and reactive pupils present and EOMs intact bilaterally PUPIL: Yes Equal, round and reactive pupils present Neck/C-Spine: COMMON NORMALS: full ROM and supple Chest: COMMONS NORMALS: normal inspection of the chest Resp: COMMON NORMALS: normal respiratory effort, No retractions, No use of accessory muscles and clear to auscultation bilaterally AUSCULTATION: clear to auscultation bilaterally Cardio: COMMON NORMALS: regular rate, regular rhythm and No murmurs present (Cardio) RATE: regular rate RHYTHM: regular rhythm Extremity: COMMON NORMALS: normal to inspection and full ROM Neuro: COMMON NORMALS: patient oriented x3, moves all extremities and no focal motor deficits Psych: COMMON NORMALS: mental status grossly normal, Normal thought process present and cooperative THOUGHT PROCESS: Normal thought process present Skin: COMMON NORMALS: no rashes or lesions noted and no wounds GENERAL SKIN EXAM: no rashes or lesions noted Course 2 Vital Signs: Vital signs: Vital Signs Temperature 98.0 F 08/02/24 11:20 Pulse Rate 88 08/02/24 12:32 Respiratory Rate 20 H 08/02/24 12:22 Blood Pressure 145/71 08/02/24 11:20 Pulse Oximetry 94 08/02/24 12:22 Oxygen Delivery Me thod Room Air 08/02/24 12:22 MDM - URI/Sore Throat Medical Decision Making Patient presents here with upper respiratory infection no signs of pneumonia here is likely a viral URI pulse ox is normal she is stable for discharge follow-up with PCP return if worsening. Medical Records I reviewed the patient's medical records. Lab Data I reviewed the patient's lab results. 08/02/24 12:18 08/02/24 12:18 Laboratory Results WBC 10.80 10^3/uL (3.29-11.43) 08/02/24 12:18 RBC 5.12 10^6/uL (3.85-5.65) 08/02/24 12:18 Hgb 13.40 g/dL (11.27-16.99) 08/02/24 12:18 Hct 42.5 % (36-47) 08/02/24 12:18 MCV 83.0 fl (85-98) L 08/02/24 12:18 MCH 26.2 pg (27-33) L 08/02/24 12:18 MCHC 31.5 g/dL (30-55) 08/02/24 12:18 RDW 14.1 % (12.1-15.1) 08/02/24 12:18 Plt Count 137 10^3/cmm (157-399) L 08/02/24 12:18 MPV 10.3 fL (7.4-10.4) 08/02/24 12:18 Neut % (Auto) 71.4 % 08/02/24 12:18 Lymph % (Auto) 13.0 % 08/02/24 12:18 [place] % (Auto) 12.0 % 08/02/24 12:18 Eos % (Auto) 2.9 % 08/02/24 12:18 Baso % (Auto) 0.2 % 08/02/24 12:18 Neut # (Auto) 7.72 10^3/uL (1.8-7.7) H 08/02/24 12:18 Lymph # (Auto) 1.4 10^3/uL (0.8-4.8) 08/02/24 12:18 [place] # (Auto) 1.3 10^3/uL (0.2-0.9) H 08/02/24 12:18 Eos # (Auto) 0.3 10^3/uL (0.0-0.8) 08/02/24 12:18 Baso # (Auto) 0.0 10^3/uL (0.0-0.1) 08/02/24 12:18 Nucleated RBC % (auto) 0 % 08/02/24 12:18 Nucleated RBCs # 0.0 /100WBC 08/02/24 12:18 Sodium 138 mmol/L (136-145) 08/02/24 12:18 Potassium 3.8 mmol/L (3.5-5.1) 08/02/24 12:18 Chloride 98 mmol/L (98-107) 08/02/24 12:18 Carbon Dioxide 25 mmol/L (22-29) 08/02/24 12:18 Anion Gap 18.8 (5-19) 08/02/24 12:18 BUN 13 mg/dL (8-23) 08/02/24 12:18 Creatinine 0.8 mg/dL (0.5-0.9) 08/02/24 12:18 GFR Calculation Not Reportable 08/02/24 12:18 Glucose 229 mg/dL (65-115) H 08/02/24 12:18 Calculated Osmolality 293 mOsm/kg (285-295) 08/02/24 12:18 Calcium 9.4 mg/dL (8.5-10.5) 08/02/24 12:18 Total Bilirubin 0.3 mg/dL (0.15-1.2) 08/02/24 12:18 AST 23 U/L (0-32) 08/02/24 12:18 ALT 24 U/L (0-33) 08/02/24 12:18 Alkaline Phosphatase 100 U/L (35-105) 08/02/24 12:18 NT-Pro-B Natriuret Pep < 36 pg/mL (0-450) 08/02/24 12:18 Total Protein 7.0 g/dL (6.6-8.7) 08/02/24 12:18 Albumin 4.1 g/dL (3.5-5.2) 08/02/24 12:18 Globulin 2.9 g/dL (1.3-4.6) 08/02/24 12:18 Coronavirus (PCR) Negative (Negative) 08/02/24 11:31 Influenza A (PCR) Negative (Negative) 08/02/24 11:31 Influenza Type B (PCR) Negative (Negative) 08/02/24 11:31 RSV (PCR) Negative (Negative) 08/02/24 11:31 Group A Strep Rapid Negative (Negative) 08/02/24 11:31 XR interpretation done by ED provider, pending radiology final review ED provider radiology interpretation(s): cxr: no acute abnormality Discharge Plan Discharge Patient Disposition: Home Clinical Impression: Upper respiratory infection Condition: Stable Prescriptions: No Action (DME) nebulizer, tubing, and supplies See Rx Instructions .Route .MEDSUPPLY Qty: 1 0RF Rx Instructions: As directed (DME) OneTouch Ultra Test Strip See Rx Instructions .Route Qty: 100 3RF Rx Instructions: Check BS QID (DME) pen needle, diabetic [BD Ultra-Fine Mini Pen Needle] 31 gauge x 3/16 needle See Rx Instructions .ROUTE .COMPLEX Qty: 1200 2RF Dose Instruction: USE 4 TIMES A DAY Rx Instructions: USE 4 TIMES A DAY insulin aspart U-100 [Novolog FlexPen U-100 Insulin] 100 unit/mL (3 mL) insulin pen 15 unit SUBCUT TID 90 Days Qty: 40.5 1RF Lantus Solostar U-100 Insulin 100 unit/mL (3 mL) insulin pen 55 unit SUBCUT BID 90 Days Qty: 99 3RF nitroglycerin [Nitrostat] 0.4 mg tablet, sublingual 0.4 mg sublingual Q5M PRN (Reason: chest pain) Qty: 25 3RF Rx Instructions: do not exceed 3 doses per episode metformin 750 mg tablet extended release 24 hr 750 mg PO BID 90 Days Qty: 180 3RF bupropion HCl [Wellbutrin XL] 150 mg tablet extended release 24 hr 150 mg PO QAM Qty: 90 2RF empagliflozin 25 mg tablet 25 mg PO DAILY 90 Days Qty: 90 2RF furosemide 40 mg tablet See Rx Instructions .ROUTE .COMPLEX Qty: 135 1RF Dose Instruction: TAKE 1 TABLET EVERY OTHER DAY , 2 TABLETS THE OTHER DAYS Rx Instructions: TAKE 1 TABLET EVERY OTHER DAY , 2 TABLETS THE OTHER DAYS gabapentin 600 mg tablet 600 mg PO TID 90 Days Qty: 270 1RF trazodone 50 mg tablet 50 mg PO BEDTIME Qty: 90 3RF losartan 50 mg tablet 50 mg PO DAILY Qty: 90 0RF losartan 25 mg tablet See Rx Instructions .ROUTE .COMPLEX Qty: 90 0RF Dose Instruction: TAKE 1 TABLET AT BEDTIME. TAKE ALONG WITH 50MG DOSE. Rx Instructions: TAKE 1 TABLET AT BEDTIME. TAKE ALONG WITH 50MG DOSE. acetaminophen [Tylenol Extra Strength] 500 mg Tablet 500 mg PO PRN ferrous sulfate [iron] 325 mg (65 mg iron) Tablet 325 mg PO DAILY atorvastatin 40 mg tablet 40 mg PO DAILY metoprolol succinate 50 mg tablet extended release 24 hr 50 mg PO DAILY omeprazole 40 mg capsule,delayed release(DR/EC) 40 mg PO DAILY duloxetine 30 mg capsule,delayed release(DR/EC) 30 mg PO DAILY Rx Instructions: TAKE 1 CAPSULE DAILY duloxetine 60 mg capsule,delayed release(DR/EC) 60 mg PO DAILY Discharge Orders: Discharge ED (Routine); Ordered 08/02/24 Ordered By: Amalia Santos Referrals: Irene Verma DO [Primary Care Provider] - 4-7 days Discharge Diet: Advance as tolerated Discharge Activity: Resume usual activity Patient Instructions: Upper Respiratory Infection (ED) Coding Level of Care Code ED Dementia Program Director for Shamar Payan
[2024-08-02 12:15] LABS: Covid PCR NEGATIVE (Negative); Influenza A NEGATIVE (Negative); Influenza B NEGATIVE (Negative); Respiratory Syncytial Virus Ce NEGATIVE (Negative)
[2024-08-02] MEDS: ipratropium-albuterol 3 mL Neb INHALATION (12:20)
[2024-08-02 12:22] VITALS: PULSE 84; RESP 20; O2SAT 94
[2024-08-02] MEDS: dexamethasone 10 mg/mL INJ IVP (12:23)
[2024-08-02 12:26] LABS: Basophils % 0.2 %; Eosinophils # 0.3 10^3/uL (0.0-0.8); Eosinophils % 2.9 %; Hematocrit 42.5 % (36-47); Lymphocytes # 1.4 10^3/uL (0.8-4.8); Mean Corpuscular HGB Conc 31.5 g/dL (30-55); Mean Corpuscular Hemoglobin 26.2 pg (27-33); Mean Platelet Volume 10.3 fL (7.4-10.4); Monocytes # 1.3 10^3/uL (0.2-0.9); Neutrophils # 7.72 10^3/uL (1.8-7.7); Neutrophils % 71.4 %; Nucleated Red Blood Cells % 0 %; Platelet Count 137 10^3/cmm (157-399); Red Blood Count 5.12 10^6/uL (3.85-5.65); Red Cell Distribution Width 14.1 % (12.1-15.1)
[2024-08-02 12:32] VITALS: PULSE 88
[2024-08-02 12:52] LABS: Alanine Aminotransferase 24 U/L (0-33); Albumin Level 4.1 g/dL (3.5-5.2); Alkaline Phosphatase 100 U/L (35-105); Anion Gap 18.8 (5-19); Aspartate Amino Transferase 23 U/L (0-32); Blood Urea Nitrogen 13 mg/dL (8-23); Calcium 9.4 mg/dL (8.5-10.5); Carbon Dioxide 25 mmol/L (22-29); Chloride 98 mmol/L (98-107); Creatinine Clr Calc Pharmacy 66.2877; Globulin 2.9 g/dL (1.3-4.6); Glucose 229 mg/dL (65-115); NT Pro B Type Natriuretic Pept < 36 pg/mL (0-450); Osmolality Calculated 293 mOsm/kg (285-295); Potassium 3.8 mmol/L (3.5-5.1); Sodium 138 mmol/L (136-145); Total Bilirubin 0.3 mg/dL (0.15-1.2)
[2024-08-02] MEDS: ketorolac 30 mg/mL INJ 15 MG IVP (13:06)
[2024-08-02 13:21] VITALS: BP 150/78; PULSE 88; O2SAT 91
== END 2024-08-02 13:38 | disposition home or self-care (01) ==
PROVIDERS: Emergency Provider Emergency Medicine; PCP Family Medicine
DX: J06.9 Acute upper respiratory infection, unspecified (principal); Z11.52 Encounter for screening for COVID-19; Z79.4 Long term (current) use of insulin; Z79.84 Long term (current) use of oral hypoglycemic drugs; I11.0 Hypertensive heart disease with heart failure; I50.9 Heart failure, unspecified; E11.40 Type 2 diabetes mellitus with diabetic neuropathy, unspecified
CPT/HCPCS: 71045; 80053; 83880; 85025; 87081; 87637; 87880; 94640; 96374; 96375; 99284; J1100; J1885

== ENCOUNTER → 2024-08-04 13:34 | Outpatient (BNVA) | payer MEDICARE, MEDICAID, SELFPAY | PROVIDERS: PCP Family Medicine; Visit Provider Nurse Practitioner | DX: R10.9 Unspecified abdominal pain (principal) | CPT/HCPCS: 81000 ==

== ENCOUNTER 2024-10-15 15:11 | Outpatient (CLI) | payer MEDICARE, MEDICAID, SELFPAY ==
--- NOTE | 2024-10-15 15:30 | XR_ITS ---
WS: [id number] SCREENING DEXA SCAN [employer] CLINICAL INFORMATION: postmenopausal COMPARISON: None. FINDINGS: The L1-L4 bone mineral density measures 0.956 g/cm2. This corresponds to a T score score of -1 and Z score of -1.0. Left femoral neck bone mineral density measures 0.834 g/cm2. This corresponds to a T score of -1.4 and Z score of -0.2. Right femoral neck bone mineral density measures 0.881 g/cm2. This corresponds to a T score -1.0of and Z score of 0.1. Mean femoral neck bone mineral density measures 0.858 g/cm2. This corresponds to a T score of -1.2 and Z score of 0.0. XR/XR DEXA axial skeleton* [id number] IMPRESSION: Osteopenia lumbar spine. Osteopenia femoral necks. Patient's FRAX calculated 10 year probability for major osteoporotic fracture i s 17.9% and osteoporotic hip fracture is 8.9%.
== END 2024-10-15 15:12 | disposition home or self-care (01) ==
PROVIDERS: PCP Family Medicine; Visit Provider Family Medicine
DX: Z78.0 Asymptomatic menopausal state (principal); M85.89 Other specified disorders of bone density and structure, multiple sites
CPT/HCPCS: 77080

== ENCOUNTER → 2024-11-07 12:25 | Outpatient (BNVA) | payer MEDICARE, MEDICAID, SELFPAY | PROVIDERS: PCP Family Medicine; Visit Provider Family Medicine | DX: E11.9 Type 2 diabetes mellitus without complications (principal); Z79.4 Long term (current) use of insulin | CPT/HCPCS: 80053; 80061; 83036 ==

== ENCOUNTER → 2024-12-16 07:54 | Outpatient (BNVA) | payer MEDICARE, MEDICAID, SELFPAY | PROVIDERS: PCP Family Medicine; Referring Provider Family Medicine; Visit Provider Psychiatry & Neurology Neurology | DX: G56.03 Carpal tunnel syndrome, bilateral upper limbs (principal); M47.812 Spondylosis without myelopathy or radiculopathy, cervical region | CPT/HCPCS: 95913 ==

== ENCOUNTER → 2024-12-22 10:29 | Outpatient (BNVA) | payer MEDICARE, MEDICAID, SELFPAY | PROVIDERS: PCP Family Medicine; Visit Provider Physician Assistant | DX: G56.03 Carpal tunnel syndrome, bilateral upper limbs (principal) | CPT/HCPCS: 73110; 99204 ==

== ENCOUNTER 2025-02-12 08:28 | Day surgery (SDC) | payer MEDICARE, MEDICAID, SELFPAY ==
[2025-02-12] VITALS (7 sets, daily range): BP systolic 117–136; BP diastolic 65–71; PULSE 63–71; RESP 16–18; TEMP 36.3–36.6; O2SAT 92–97; BMI 34.3
--- NOTE | 2025-02-12 08:59 | W.PM.OPSFHP ---
Same Day Surgery H&P Indication for Procedure/HPI DATE OF PROCEDURE: February 12, 2025 CHIEF COMPLAINT/INDICATIONFOR SURGICAL PROCEDURE: Right carpal tunnel syndrome PREOP DIAGNOSIS: Right carpal tunnel syndrome PLANNED PROCEDURE: Operation Date: 02/12/25 10:50 Proposed Procedures p RIGHT Carpal Tunnel Release(Right) - Usman Tomlinson, DO Medications/Allergies* Home Medications ?Medication ?Instructions ?Recorded ?Confirmed ?Type acetaminophen 500 mg tablet 500 mg PO PRN 05/07/20 02/11/25 History (Tylenol Extra Strength) ferrous sulfate 325 mg (65 mg 325 mg PO DAILY 05/07/20 02/11/25 History iron) tablet (iron) omeprazole 40 mg capsule,delayed 40 mg PO DAILY 02/11/25 02/11/25 History release Allergies/Adverse Reactions Allergy/AdvReac Type Severity Reaction Status Date / Time enalaprilat (From Vasotec) AdvReac Mild ADR-Cough Verified 01/05/25 08:56 semaglutide (From Ozempic) AdvReac pancreatiti Verified 01/05/25 08:56 s Pertinent History/Comorbid Conditions* Medical History (Updated 12/22/24 @ 10:49 by JACOB Moya) Esophageal spasm nitro is what works Diabetic neuropathy Essential tremor Pancreatitis Due to Ozempic Type 2 diabetes mellitus, with long-term current use of insulin Dyslipidemia Essential hypertension CHF (congestive heart failure) COPD (chronic obstructive pulmonary disease) Anxiety GERD (gastroesophageal reflux disease) Reactive depression Surgical History (Updated 07/09/24 @ 11:13 by Jena Casey MD) History of cholecystectomy H/O cataract extraction OU H/O tubal ligation H/O knee surgery right arthroscopic Family History (Updated 10/06/24 @ 11:04 by Jena Casey MD) Diabetes Sister Hyperlipidemia Sister Chronic kidney disease (CKD) Father Hypertension Sister Stroke Father Denies family history of Colon cancer Ovarian cancer Clotting disorder Heart disease Breast cancer Anesthesia complication Bleeding disorder Uterine cancer Thyroid disease Social History Smoking and tobacco/nicotine status: never used tobacco/nicotine Alcohol intake: never Substance/Drug Use: never Household members: other Details: lives with daughter Marital status: / Number of children: 3 Highest education level completed: Associate Degree: Occupational, Technical, Vocational Program Current occupational status: retired 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 Right thenar atrophy and thenar muscle weakness. No weakness or atrophy of left thenar muscle. Full range of motion in fingers and wrist and fingers are warm and well-perfused with normal cap refill under 2 seconds. Radial pulse 2+no intrinsic muscle weakness noted. Bilateral Elbow exam-negative Tinel's test Recommendations Risks and benefits of procedure reviewed and Patient/family agree to proceed Surgery/Procedure today Other Plans: And proceed to the OR today for right carpal tunnel release. Patient understands ins and outs of the procedure the risk benefits complication alternatives surgery. Understanding risk of surgery patient like to proceed with surgical invention all questions been answered at this time. We once again reviewed her nerve conduction study consistent with bilateral carpal tunnel symptoms. She is ready to proceed with surgical intervention today all questions answered at this time. Coding Level of Care Code Acute Code for Shamar Fwd
[2025-02-12] MEDS: acetaminophen 1,000 MG/100 ML PIGGYBACK 400 MG IV (09:09)
--- NOTE | 2025-02-12 09:30 | ANES.PREANE2 ---
Pre-Anesthetic Assessment Height/Weight: Height 1.63 m Weight 90.718 kg Temp Pulse Resp BP Pulse Ox O2 Del Method 98 F 66 18 117/71 97 Room Air 02/12/25 08:54 02/12/25 08:54 02/12/25 08:54 02/12/25 08:54 02/12/25 08:54 02/12/25 08:56 Preop Diagnosis: Right carpal tunnel syndrome Operation Date: 02/12/25 10:50 Proposed Procedures p RIGHT Carpal Tunnel Release(Right) - Usman Tomlinson DO Familial anesthetic complications: None Was Beta Roseann taken within 24 hours: N/A Was Clonidine taken within 24 hours: N/A Last intake: Intake Last Liquid Date 02/11/25 Last Liquid Time 21:00 Last Solid Date 02/11/25 Last Solid Time 18:00 Social No alcohol and No tobacco Exam alert, oriented x 3, clear to auscultation bilaterally and regular rate & rhythm Airway Mallampati: Class II Dentition: false Pulmonary Chronic Obstructive Pulmonary Disease CV/HEM Congestive Heart Failure and Hypertension GI Gastroesophageal Reflux Disease Metabolic Diabetes Mellitus and Morbid Obesity Neuropsych tremor Anesthetic Plan ASA status: 3 Anesthesia: MAC Risk of > 500 ml blood loss (7ml/kg in children): No Medications/Allergies Home Medications ?Medication ?Instructions ?Recorded ?Confirmed ?Last Taken ?Type acetaminophen 500 mg tablet 500 mg PO PRN 05/07/20 02/11/25 02/09/25 History (Tylenol Extra Strength) ferrous sulfate 325 mg (65 mg 325 mg PO DAILY 05/07/20 02/11/25 02/10/25 History iron) tablet (iron) nebulizer, tubing, and supplies #1 ea 06/22/22 01/05/25 Unknown Rx bupropion HCl 150 mg 24 hr tablet, 150 mg PO QAM #90 tabs 02/01/24 02/11/25 02/11/25 Rx extended release (Wellbutrin XL) empagliflozin 25 mg tablet 25 mg PO DAILY 90 days #90 tabs 02/01/24 02/11/25 02/11/25 Rx trazodone 50 mg tablet 50 mg PO BEDTIME #90 tabs 02/01/24 02/11/25 02/10/25 Rx blood sugar diagnostic (OneTouch #100 ea 07/09/24 01/05/25 Unknown Rx Ultra Test strips) metformin 750 mg tablet,extended 750 mg PO BID 90 days #180 tabs 07/09/24 02/11/25 02/11/25 Rx release 24 hr nitroglycerin 0.4 mg sublingual 0.4 mg sublingual Q5M PRN chest 07/09/24 02/11/25 Unknown Rx tablet (Nitrostat) pain #25 tabs furosemide 40 mg tablet See Rx Instructions .Route 08/04/24 02/11/25 02/11/25 Rx .COMPLEX #135 tabs meclizine 12.5 mg tablet 12.5 mg PO TID PRN dizziness #20 08/04/24 02/11/25 Unknown Rx tabs insulin glargine 100 unit/mL (3 60 unit (0.6 mL) SUBCUT BID 90 11/11/24 02/11/25 02/11/25 Rx mL) subcutaneous pen (Lantus days #108 mL Solostar U-100 Insulin) pen needle, diabetic 31 gauge x #1,200 ea 11/24/24 01/05/25 Unknown Rx 3/16 atorvastatin 40 mg tablet 40 mg PO DAILY #90 tabs 12/02/24 02/11/25 02/10/25 Rx losartan 25 mg tablet 25 mg PO DAILY #90 tabs 12/04/24 02/11/25 02/10/25 Rx losartan 50 mg tablet 50 mg PO DAILY #90 tabs 12/04/24 02/11/25 02/11/25 Rx metoprolol succinate 50 mg 50 mg PO DAILY 90 days #90 tabs 01/01/25 02/11/25 02/10/25 Rx tablet,extended release 24 hr insulin lispro 100 unit/mL 15 unit (0.15 mL) SUBCUT TID #15 mL 01/05/25 02/11/25 02/11/25 Rx subcutaneous pen (Humalog KwikPen (U-100) Insulin) duloxetine 30 mg capsule,delayed 30 mg PO DAILY #90 caps 01/27/25 02/11/25 02/11/25 Rx release duloxetine 60 mg capsule,delayed 60 mg PO DAILY #90 caps 01/27/25 02/11/25 02/11/25 Rx release omeprazole 40 mg capsule,delayed 40 mg PO DAILY 02/11/25 02/11/25 02/11/25 History release Allergies Allergy/AdvReac Type Severity Reaction Status Date / Time enalaprilat (From Vasotec) AdvReac Mild ADR-Cough Verified 01/05/25 08:56 semaglutide (From Ozempic) AdvReac pancreatiti Verified 01/05/25 08:56 s Current Medications Generic Name Dose Route Start Last Admin Trade Name Freq PRN Reason Stop Dose Admin Sodium Chloride 1,000 mls @ 30 mls/hr 02/12/25 08:45 02/12/25 09:10 Sodium Chloride 0.9% IV 02/13/25 08:44 30 mls/hr .Q24H MARY Administration PFSH Anesthesia Medical History Esophageal spasm nitro is what works Diabetic neuropathy Essential tremor Pancreatitis Due to Ozempic Type 2 diabetes mellitus, with long-term current use of insulin Dyslipidemia Essential hypertension CHF (congestive heart failure) COPD (chronic obstructive pulmonary disease) Anxiety GERD (gastroesophageal reflux disease) Reactive depression Surgical History History of cholecystectomy H/O cataract extraction OU H/O tubal ligation H/O knee surgery right arthroscopic Family History Sister Diabetes Hyperlipidemia Hypertension Father Stroke Chronic kidney disease (CKD) Denies family history of Colon cancer Ovarian cancer Clotting disorder Heart disease Breast cancer Anesthesia complication Bleeding disorder Uterine cancer Thyroid disease Social History Smoking and tobacco/nicotine status: never used tobacco/nicotine Alcohol intake: never Substance/Drug Use: never Household members: other Details: lives with daughter Marital status: / Number of children: 3 Highest education level completed: Associate Degree: Occupational, Technical, Vocational Program Current occupational status: retired 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
[2025-02-12] MEDS: ceFAZolin 2,000 MG in sodium chloride 0.9% (plus) 50 ML 100 MG IV (09:53)
[2025-02-12] MEDS: ROPivacaine 0.5% SDV 30 mL 150 MG INJECTION (10:11)
[2025-02-12] MEDS: lidocaine-epi 1% 20 mL INJ INJECTION (10:11)
--- NOTE | 2025-02-12 10:31 | W.PM.BPON ---
Date of Procedure: 02/12/2025 Surgeon: Usman Tomlinson DO Swimming Pool Service Technician(s): None Procedure(s) performed: Right carpal tunnel release Findings of the procedure(s): Patient underwent procedure as planned without issues or complications. Estimated blood loss: 3 mL Specimen(s) removed: None Post-operative diagnosis: Right carpal tunnel syndrome
--- NOTE | 2025-02-12 10:32 | PM.OP ---
Operative Report Date of procedure: February 12, 2025 Surgeon: Usman Tomlinson DO Procedure: Preop Diagnosis: Right Carpal Tunnel Syndrome Post-op diagnosis: Same Procedure done: 1. Right carpal tunnel release Surgeon: Usman Tomlinson DO Anesthesia: MAC (Local) Estimated blood loss: 3 mL Tourniquet time 4 minutes IV fluids: See anesthesia record Complications: None Findings: See operative report narrative Condition: stable Disposition: same day Brief History: Patient is a pleasant 75 year-old female with right carpal tunnel syndrome. Patient has been worked up in the outpatient setting findings and physical examination consistent with this. Patient nerve conduction studies consistent with carpal tunnel syndrome. We detailed out patient's risk benefits complication alternatives with surgical and nonsurgical treatment options. Through shared decision making, patient agrees to proceed with surgical intervention of the right carpal tunnel release . Patient understands and agrees with current plan. All questions answered. Patient elects to proceed with surgical intervention with carpal tunnel release. Procedure: Patient seen and evaluated in the preoperative holding area. Consent was reviewed and signed with patient. Correct extremity was marked. Patient was seen evaluated by the anesthesia department once cleared for surgery was brought back to the operative suite. [facility] all bony prominences were well-padded patient properly secured to the bed. Right upper extremity was then placed onto an armboard. A nonsterile tourniquet was applied to the Right upper arm. Patient underwent anesthesia per the anesthesia department. Patient's Right upper extremity was then prepped and draped in standard orthopedic fashion. Final timeout performed. Patient received appropriate preoperative antibiotics. Under sterile aseptic technique patient received local anesthesia over the preplanned carpal tunnel incision site. Esmarch was used to exsanguinate the Right upper extremity and tourniquet was insufflated to 250 mmHg. A standard mini open Right carpal tunnel incision was made. Starting distally at Abdalla's cardinal line in line with the fourth ray extending proximally distal to the wrist crease centered over the carpal tunnel. Sharp scalpel incision was made through skin and subcutaneous tissue. Self-retaining retractor was placed and the palmar fascia was identified. This was then split longitudinally and direct visualization of the transverse carpal ligament was then made. I then utilizing scalpel feathered through the transverse carpal ligament until I entered the floor of the transverse carpal tunnel ligament into the carpal tunnel. Next I switched to dissection scissors and completed my release of the transverse carpal ligament distally with care to protect the recurrent motor branch. I completely released into the palmar fat and until no entrapment was noted distally. Care was made to protect the superficial palmar arch during my distal dissection. Next I utilized a nasal speculum placed on top of the transverse carpal ligament and utilize this to retract the subcutaneous fat and tissue and under direct loupe magnification was able to identify the transverse carpal ligament. Next I then protected the contents of the carpal tunnel and subsequently utilizing dissection scissors under loupe magnification completely released the transverse carpal ligament proximally into the antebrachial fascia. Care was made to protect the palmar cutaneous branch by keeping my scissors curved ulnarly. Once completely released, I then placed my C[place] and had appropriate decompression of the carpal tunnel proximally as well as distally. I then inspected the contents of the carpal tunnel which showed an hourglass shape of the median nerve showing its compression. No masses were noted. Tendons appeared healthy. Wound was then thoroughly irrigated. Tourniquet deflated. Hemostasis satisfactory with bipolar electrocautery. I then closed the incision with interrupted nylon stitches. Xeroform 4 x 4's and a bulky soft dressing was applied. Patient was then awakened from anesthesia and taken to PACU in stable condition. Patient tolerated procedure without complications. Disposition: Patient taken to PACU in stable condition recovering well. Dressing clean dry and intact. Patient will receive appropriate discharge instructions as well as pain medication postoperatively. Patient to follow-up with me in the office in 2 weeks. They understand they may be weightbearing as tolerated to the right hand. Patient should keep incision clean dry and intact. Patient understands if any questions or concerns may contact the office.
--- NOTE | 2025-02-12 10:57 | PM.PACU ---
PACU note Narrative: Patient is a 74-year-old female that just underwent a right carpal tunnel release. Patient transferred to PACU in stable condition. Pain is well controlled. Dressing on hand is dry and in place. Patient's fingers are warm and well-perfused. Patient can wiggle fingers. normal cap refill under 2 seconds. Patient has normal elbow range of motion. Unable to assess sensation due to residual localized anesthetic. Exam: awake Disposition: discharged
--- NOTE | 2025-02-12 13:57 | ANE.PACU2 ---
Inpatient post-anesthesia follow up: Airway intact: Yes Vital signs: Temperature 97.5 F Pulse Rate 64 Respiratory Rate 18 Blood Pressure 132/66 Pulse Oximetry 95 Oxygen Delivery Me thod Room Air Oxygen Flow Rate Fraction of Inspir ed Oxygen Hydration adequate: Yes Nausea and vomiting: No Pain level: 1 Mental status: Baseline
== END 2025-02-12 11:45 | disposition home or self-care (01) ==
PROVIDERS: PCP Family Medicine; Visit Provider Student in an Organized Health Care Education/Training Program
PROC: (CPT 64721; principal; 2025-02-12 10:50)
DX: G56.01 Carpal tunnel syndrome, right upper limb (principal); J44.9 Chronic obstructive pulmonary disease, unspecified; I11.0 Hypertensive heart disease with heart failure; I50.9 Heart failure, unspecified; K21.9 Gastro-esophageal reflux disease without esophagitis; E11.9 Type 2 diabetes mellitus without complications; E66.01 Morbid (severe) obesity due to excess calories; Z68.34 Body mass index [BMI] 34.0-34.9, adult; Z79.84 Long term (current) use of oral hypoglycemic drugs; Z79.4 Long term (current) use of insulin; E78.5 Hyperlipidemia, unspecified; F41.9 Anxiety disorder, unspecified
CPT/HCPCS: 64721; 36416; 82962; J0131; J0690; J1885; J2704; J2795; J3010; J7030; J9999

== ENCOUNTER → 2025-02-25 13:57 | Outpatient (BNVA) | payer MEDICARE, MEDICAID, SELFPAY | PROVIDERS: PCP Family Medicine; Visit Provider Physician Assistant | DX: Z98.890 Other specified postprocedural states (principal); G56.03 Carpal tunnel syndrome, bilateral upper limbs | CPT/HCPCS: 99214 ==

== ENCOUNTER → 2025-03-06 09:52 | Outpatient (BNVA) | payer MEDICARE, MEDICAID, SELFPAY | PROVIDERS: PCP Family Medicine; Visit Provider Family Medicine | DX: E11.9 Type 2 diabetes mellitus without complications (principal); Z79.4 Long term (current) use of insulin | CPT/HCPCS: 80053; 83036 ==

== ENCOUNTER → 2025-04-15 10:53 | Outpatient (BNVA) | payer MEDICARE, MEDICAID, SELFPAY | PROVIDERS: PCP Family Medicine; Visit Provider Student in an Organized Health Care Education/Training Program | DX: Z98.890 Other specified postprocedural states (principal); G56.01 Carpal tunnel syndrome, right upper limb | CPT/HCPCS: 99213 ==

== ENCOUNTER → 2025-06-08 10:10 | Outpatient (BNVA) | payer MEDICARE, MEDICAID, SELFPAY | PROVIDERS: PCP Family Medicine; Visit Provider Family Medicine | DX: E11.9 Type 2 diabetes mellitus without complications (principal); Z79.4 Long term (current) use of insulin | CPT/HCPCS: 80053; 82043; 83036; 85025 ==